=== PATIENT | female | born 1980 | race Caucasian/White ===

== ENCOUNTER → 2020-12-06 13:30 | Outpatient (BNVA) | payer OTHER, SELFPAY | PROVIDERS: PCP Nurse Practitioner Family; Visit Provider Internal Medicine | DX: G43.711 Chronic migraine without aura, intractable, with status migrainosus (principal); M54.81 Occipital neuralgia | CPT/HCPCS: 64405; J3300 ==

== ENCOUNTER → 2021-01-14 08:03 | Outpatient (BNVA) | payer OTHER, SELFPAY | PROVIDERS: PCP Nurse Practitioner Family; Visit Provider Internal Medicine | DX: G43.711 Chronic migraine without aura, intractable, with status migrainosus (principal) | CPT/HCPCS: 64615; J0585 ==

== ENCOUNTER → 2021-04-11 08:01 | Outpatient (BNVA) | payer OTHER, SELFPAY | PROVIDERS: PCP Nurse Practitioner Family; Visit Provider Internal Medicine | DX: M54.81 Occipital neuralgia (principal); G43.711 Chronic migraine without aura, intractable, with status migrainosus | CPT/HCPCS: 64615; J0585 ==

== ENCOUNTER → 2021-07-08 11:09 | Outpatient (BNVA) | payer OTHER, SELFPAY | PROVIDERS: PCP Nurse Practitioner Family; Visit Provider Internal Medicine | DX: G43.711 Chronic migraine without aura, intractable, with status migrainosus (principal) | CPT/HCPCS: 64615; J0585 ==

== ENCOUNTER → 2021-09-23 08:05 | Outpatient (BNVA) | payer OTHER, SELFPAY | PROVIDERS: PCP Nurse Practitioner Family; Visit Provider Internal Medicine | DX: G43.711 Chronic migraine without aura, intractable, with status migrainosus (principal) | CPT/HCPCS: 64615 ==

== ENCOUNTER → 2021-12-13 09:56 | Outpatient (BNVA) | payer OTHER, SELFPAY | PROVIDERS: PCP Nurse Practitioner Family; Visit Provider Internal Medicine | DX: Z13.89 Encounter for screening for other disorder (principal) | CPT/HCPCS: 73030; 99203 ==

== ENCOUNTER → 2021-12-16 10:09 | Outpatient (BNVA) | payer OTHER, SELFPAY | PROVIDERS: PCP Nurse Practitioner Family; Visit Provider Internal Medicine | DX: G43.711 Chronic migraine without aura, intractable, with status migrainosus (principal) | CPT/HCPCS: 64615 ==

== ENCOUNTER → 2021-12-16 13:21 | Outpatient (BNVA) | payer OTHER, SELFPAY | PROVIDERS: PCP Nurse Practitioner Family; Visit Provider Internal Medicine | DX: Z13.89 Encounter for screening for other disorder (principal) | CPT/HCPCS: 99213 ==

== ENCOUNTER 2021-12-21 06:09 | Outpatient (REF) | payer OTHER, SELFPAY | END 2021-12-21 06:10 | disposition home or self-care (01) | LOC: HO.HOSX 06:09 | PROVIDERS: Visit Provider Physician Assistant | DX: M75.21 Bicipital tendinitis, right shoulder (principal); X50.0XXA Overexertion from strenuous movement or load, initial encounter; Y93.F2 Activity, caregiving, lifting; Y92.9 Unspecified place or not applicable; Y99.0 Civilian activity done for income or pay | CPT/HCPCS: 20610; 99202; J1040 ==

== ENCOUNTER 2022-02-01 10:07 | Outpatient (REF) | payer OTHER, SELFPAY ==
[2022-02-02 21:01] LABS: Prolactin 7.1 ng/mL
== END 2022-02-01 10:08 | disposition home or self-care (01) ==
LOC: HO.LAB 10:07
PROVIDERS: PCP Nurse Practitioner Family; Visit Provider Advanced Practice Midwife
DX: M75.21 Bicipital tendinitis, right shoulder (principal); M25.311 Other instability, right shoulder; N92.6 Irregular menstruation, unspecified
CPT/HCPCS: 36415; 84146; 84443; 99212

== ENCOUNTER 2022-02-24 13:08 | Outpatient (REF) | payer OTHER, SELFPAY ==
--- NOTE | ~2022-02-24 | MR_ITS ---
EXAMINATION: MR SHOULDER WITH CONTRAST, RIGHT CLINICAL INFORMATION: Biceps tendinitis COMPARISON: Radiographs 12/13/2021 TECHNIQUE: MRI of the shoulder was performed following the intra-articular administration of a dilute gadolinium-containing solution (arthrogram) on a high-field scanner. FINDINGS: ROTATOR CUFF: Intact. No muscle atrophy or fatty infiltration. BICEPS: Normal. CORACOACROMIAL ARCH: The undersurface of the acromion is curved with no subacromial spur. The acromioclavicular joint is normal. LABRUM/CAPSULE: Normal. GLENOHUMERAL JOINT/MARROW: No articular cartilage defect. Bone marrow signal is normal. MR/MR shoulder RT w con IMPRESSION: Normal MRI arthrogram of the right shoulder. No rotator cuff tear. The glenoid labrum appears intact.
--- NOTE | ~2022-02-24 | FL_ITS ---
EXAMINATION: XR ARTHROGRAM SHOULDER, RIGHT CLINICAL INFORMATION: Bicipital tendinitis. Right shoulder pain. COMPARISON: None. TECHNIQUE: Following explaining fluoroscopy-guided right shoulder arthrogram procedure, benefits and risks, a written consent was obtained. Patient was placed supine on fluoroscopy table and the anterior aspect of the right shoulder joint was cleaned and draped in usual sterile manner. 1% lidocaine was injected at the puncture site overlying the anterior inferior shoulder joint. A 22-gauge spinal needle was then inserted from the anterior skin into the inferior shoulder joint and 2 mL of nonionic contrast was injected. A single image was obtained. After confirming contrast in the joint space 0.1 mL of gadolinium diluted with 8 mL of 1% lidocaine and saline combination was injected and needle withdrawn. Complete hemostasis was achieved at the puncture site. Simple Band-Aid applied postprocedure. Patient was sent to MRI for further imaging. FINDINGS: On a single image obtained of the shoulder joint, there is maintained glenohumeral and AC joint space. There is iodinated contrast opacifying the glenohumeral joint space. Post injection, patient was sent to MRI for further imaging. FLUOROSCOPY TIME: 0.5 minutes. DOSE AREA PRODUCT: 0.980 uGy-m2 (microgray-meter squared). FL/FL arthrogram shoulder RT IMPRESSION: Successful fluoroscopy-guided right shoulder arthrogram. Patient was sent to MRI for further imaging.
== END 2022-02-24 13:09 | disposition home or self-care (01) ==
LOC: HO.XRAY 13:08
PROVIDERS: PCP Nurse Practitioner Family; Visit Provider Physician Assistant
DX: M75.21 Bicipital tendinitis, right shoulder (principal); M25.311 Other instability, right shoulder
CPT/HCPCS: 23350; 73040; 73222; A9585

== ENCOUNTER → 2022-03-03 08:55 | Outpatient (BNVA) | payer OTHER, SELFPAY | PROVIDERS: PCP Nurse Practitioner Family; Visit Provider Internal Medicine | DX: Z13.89 Encounter for screening for other disorder (principal) | CPT/HCPCS: 99213 ==

== ENCOUNTER → 2022-03-20 08:02 | Outpatient (BNVA) | payer OTHER, SELFPAY | PROVIDERS: PCP Nurse Practitioner Family; Visit Provider Internal Medicine | DX: G43.711 Chronic migraine without aura, intractable, with status migrainosus (principal) | CPT/HCPCS: 64615 ==

== ENCOUNTER 2022-03-28 15:00 | Outpatient (RCR) | payer OTHER, SELFPAY ==
--- NOTE | 2021-12-30 08:59 | MHC.PT.EP ---
[facility] [place] Office [place] Office [place] Office [address] Tricia Ramos [address] [phone] F: [phone] F: [phone] F: [phone] F: [phone] Physical Therapy Plan of Care Date of Evaluation: Date of Surgery: N/A Diagnosis: PT RTC impingement (RC) Assessment: pt is a 41 yo female presenting to physical therapy w/ signs and symptoms consistent w/ shoulder strain. pt presents to physical therapy with pain, decreased range of motion, decreased strength, impaired functional mobility, impaired postural awareness, and gait deviations. pt is a good candidate for skilled PT due to age, potential remediation of impairments, typical disease/condition progression and prognosis, comorbidities, and motivation. pt would benefit from tailored strengthening and stretching exercise program, functional training, gait training, postural re-training, neuromuscular re-education, modalities as needed for pain, equipment safety demonstration. Frequency and Duration: The patient will be seen 2x/wk for 6 wks Short Term Goals: pt will be I w/ HEP to promote self-management of condition. pt will improve shoulder flexion by at least 10 degrees to promote ease in reaching for objects on higher shelves. Quantitative Analyst Marketing Goals: pt will improve R shoulder flexion and elbow flexion by at least 1 MMT grade to promote ease in carrying 15# object. pt will improve R shoulder functional internal rotation to at least T12 to promote ease in upper body dressing. Treatment Plan: Modalities to reduce pain, spasms and effusion. Manual therapy to restore motion and function. Therapeutic exercise to improve strength and flexibility. Neuromuscular re-education for posture and balance. Therapeutic activities to return to functional activities of daily living. Electronically signed by: Bety Young PT, DPT Please sign and return to therapist. Thank you for your referral.
--- NOTE | 2022-03-28 15:47 | MHC.PT.DC ---
[facility] [place] Office [place] Office [place] Office [address] Tricia Ramos [address] [phone] F: [phone] F: [phone] F: [phone] F: [phone] Physical Therapy Discharge Report Diagnosis: PT RTC impingement (RC) Date of Surgery: N/A Date of Evaluation: 12/30/21 Date of Discharge: Treatments to Date: 19 Cancellations to Date: 0 No Shows to Date: 0 Discharge Status: Discharge Summary: The patient overall has made significant improvements in her shoulder active range of motion, strength, endurance, and pain severity/intensity. She is nearly back to full activity without restriction. She does continue to self-limit regarding heavier lifting and overhead reaching due to fear of re-exacerbation of symptoms. She was instructed in a return to gym program to maintain the gains she has made here in PT. She is discharged from this physical therapy plan of care to her home exercise program. pt overall fatigued as she is on antibiotics for strep and just recently got her flu shot. Ended session early d/t fatigue. Electronically signed by: Please sign and return to therapist. Thank you for your referral.
== END 2022-03-28 15:47 | disposition home or self-care (01) ==
LOC: HO.PT 15:00
PROVIDERS: PCP Nurse Practitioner Family; Visit Provider Internal Medicine
DX: M25.811 Other specified joint disorders, right shoulder (principal)
CPT/HCPCS: 97035; 97110; 97140; 97162; 97530

== ENCOUNTER → 2022-04-06 13:59 | Outpatient (BNVA) | payer OTHER, SELFPAY | PROVIDERS: PCP Nurse Practitioner Family; Visit Provider Internal Medicine | DX: Z13.89 Encounter for screening for other disorder (principal) | CPT/HCPCS: 99213 ==

== ENCOUNTER → 2022-04-12 08:06 | Outpatient (BNVA) | payer OTHER, SELFPAY | PROVIDERS: PCP Nurse Practitioner Family; Visit Provider Physician Assistant | DX: M75.21 Bicipital tendinitis, right shoulder (principal) | CPT/HCPCS: 20610; 99212; J1040 ==

== ENCOUNTER 2022-05-01 15:23 | Outpatient (REF) | payer OTHER, SELFPAY ==
--- NOTE | ~2022-05-01 | MM_ITS ---
EXAMINATION: MM SCREENING DIGITAL BREAST TOMOSYNTHESIS, BILATERAL CLINICAL INFORMATION: Screening. Asymptomatic. Prior history reduction mammoplasty. Age 41. Family history breast cancer, mother age 68. COMPARISON: None (current study represents initial baseline exam). TECHNIQUE: Digital breast tomosynthesis is performed in both the craniocaudal and mediolateral oblique views along with computer-aided detection (CAD). Synthesized 2D images are generated from the tomosynthesis. FINDINGS: There are scattered areas of fibroglandular density (ACR BI-RADS breast composition Category b). There are no significant masses, abnormal calcifications, or other abnormalities. There are scattered bilateral benign round, rim, and dermal calcifications anterior breasts consistent with the prior reduction mammoplasty. The axilla are unremarkable. MM/MM tomosynthesis screening BI IMPRESSION: No mammographic evidence of malignancy. ASSESSMENT: BI-RADS 2: Benign RECOMMENDATION: Routine annual mammography screening. This patient's information was entered into a reminder system with a target due date for their next mammogram.
== END 2022-05-01 15:24 | disposition home or self-care (01) ==
LOC: HO.MAMMO 15:23
PROVIDERS: PCP Nurse Practitioner Family; Visit Provider Nurse Practitioner Family
DX: Z12.31 Encounter for screening mammogram for malignant neoplasm of breast (principal)
CPT/HCPCS: 77063; 77067

== ENCOUNTER → 2022-06-26 08:02 | Outpatient (BNVA) | payer OTHER, SELFPAY | PROVIDERS: PCP Nurse Practitioner Family; Visit Provider Internal Medicine | DX: G43.711 Chronic migraine without aura, intractable, with status migrainosus (principal) | CPT/HCPCS: 64615; J0585 ==

== ENCOUNTER → 2022-07-20 10:03 | Outpatient (BNVA) | payer OTHER, SELFPAY | PROVIDERS: PCP Nurse Practitioner Family; Visit Provider Physician Assistant Medical | DX: Z13.89 Encounter for screening for other disorder (principal) | CPT/HCPCS: 99202 ==

== ENCOUNTER → 2022-07-27 08:22 | Outpatient (BNVA) | payer OTHER, SELFPAY | PROVIDERS: PCP Nurse Practitioner Family; Visit Provider Physician Assistant Medical | DX: Z13.89 Encounter for screening for other disorder (principal) | CPT/HCPCS: 99213 ==

== ENCOUNTER → 2022-08-04 10:19 | Outpatient (BNVA) | payer OTHER, SELFPAY | PROVIDERS: PCP Nurse Practitioner Family; Visit Provider Physician Assistant | DX: M75.21 Bicipital tendinitis, right shoulder (principal); M75.41 Impingement syndrome of right shoulder | CPT/HCPCS: 20610; 99212; J1040 ==

== ENCOUNTER → 2022-08-21 08:04 | Outpatient (BNVA) | payer OTHER, SELFPAY | PROVIDERS: PCP Nurse Practitioner Family; Visit Provider Internal Medicine | DX: G43.711 Chronic migraine without aura, intractable, with status migrainosus (principal) | CPT/HCPCS: 64615; J0585 ==

== ENCOUNTER → 2022-09-01 08:25 | Outpatient (BNVA) | payer OTHER, SELFPAY | PROVIDERS: PCP Nurse Practitioner Family; Visit Provider Physician Assistant | DX: M75.21 Bicipital tendinitis, right shoulder (principal); M75.41 Impingement syndrome of right shoulder | CPT/HCPCS: 99212 ==

== ENCOUNTER → 2022-11-20 07:58 | Outpatient (BNVA) | payer OTHER, SELFPAY | PROVIDERS: PCP Nurse Practitioner Family; Visit Provider Internal Medicine | DX: G43.711 Chronic migraine without aura, intractable, with status migrainosus (principal); M75.41 Impingement syndrome of right shoulder | CPT/HCPCS: 64615; J0585 ==

== ENCOUNTER 2023-01-26 09:18 | Outpatient (AMB) | payer OTHER, SELFPAY ==
--- NOTE | 2023-01-26 09:24 | A.OFFVIS_ITS ---
Intake Vital Signs 01/26/23 09:25 Height 5 ft 7 in Weight 135 lb BMI 21.1 Intake Visit Reasons: New Pt - Right Shoulder Pain Intake Note: Rosanne is a 42 year old right hand dominant female who presents today with complaints of right shoulder pain. Patient reports that she has had ongoing right shoulder pain for about a year now, she had an injury in 2021 while at work . She has history of right shoulder injections with [facility], she reports that these injections were helpful. She reports that she was restraining a patient who was waking up from anesthesia and she believes she aggravated her shoulder while doing this. Allergies No Known Allergies Allergy (Verified 11/20/22 08:03) HPI New Pt - Right Shoulder Pain HPI Details Rosanne is a 42 year old right hand dominant woman who returns to discuss her right shoulder impingement. She works as a nurse here at [employer], and initially injured her shoulder retraining a patient, DOI: 12/09/21. She has been seen by TITA Gomez and given a steroid injection on 08/04/22, with good relief for at least 6 weeks. She returns today with complains of pain in her shoulder, worse with overhead activities and at night. Her pain is localized to the anterior of her shoulder She would like a repeat injection today. She found limited relief from PT in the past She had an MRI of her shoulder on 02/27/22 [facility] Medical History Bilateral occipital neuralgia Migraine Surgical History History of endometrial ablation Social History Current occupational status: employed Current occupation: OR nurse Review of Systems Const All systems reviewed & are unremarkable except as noted in HPI and below Physical Exam Vital Signs: BMI result Body Mass Index 21.1 Const General: no acute distress and alert Orientation/consciousness: patient oriented x3 Neuro General: patient oriented x3 Extrem Other: Right Shoulder: +H/N - empty can + O bladimir's TTP over bicipital ghroove neg lift off Psych Appearance: grossly normal Affect: normal affect Attitude: cooperative Office Procedures Joint Injection/Drain Joint Injection/Drain Details: Injected 1 mL of Decadron and 3 mL 1% lidocaine and 3 mL of 0.25% Marcaine. Site was prepped using aseptic technique. Patient tolerated the procedure well. Primary Site: right shoulder (GH joint) Approach Used: posterolateral Coding 31635 - Large joint Procedure code (CPT) selection complete Results Reviewed Results Reviewed: 01/26/23 09:47 BUPivacaine MPF 0.25 % [Sensorcaine-MPF 0.25% 10 ML] 10 ml .ROUTE .STK-MED ONE Lidocaine HCl 2 % MPF [Xylocaine 2 % MPF] 5 ml .ROUTE .STK-MED ONE 01/26/23 09:48 dexAMETHasone sod phosphate [Decadron] 4 mg .ROUTE .STK-MED ONE I personally reviewed relevant MR images. MR/MR shoulder RT w con IMPRESSION: Normal MRI arthrogram of the right shoulder. No rotator cuff tear. The glenoid labrum appears intact. Assessment & Plan Assessment & Plan (1) Biceps tendinitis of right shoulder: Code(s): M75.21 - Bicipital tendinitis, right shoulder Plan: This is a 42 year old woman with right biceps tendinitis & shoulder impingement, S/P work injury of 12/09/21. She continues to have pain with daily activity, worse with overhead activity an at night. She has good, but limited, relief from steroid injections and no improvement with PT. I discussed her diagnosis and treatment options, including surgery. I injected her right GH joint, which she tolerated well. We will see if this is helpful and proceed accordingly. (2) Rotator cuff impingement syndrome of right shoulder: Code(s): M75.41 - Impingement syndrome of right shoulder Plan Scribed for Camacho Decker MD by Jesus Manuel Scott, medical supply technician, on 01/26/23 at 9:45 AM, EST. Coding Level of Care Code Est Pt Level 4 (69795) Diagnoses Biceps tendinitis of right shoulder M75.21 Rotator cuff impingement syndrome of right shoulder M75.41 CPT Codes Coding - Large joint: 14914 - Large joint ([id number])
[2023-01-26 09:25] VITALS: BMI 21.1
== END 2023-01-26 10:04 | disposition home or self-care (01) ==
PROVIDERS: PCP Nurse Practitioner Family; Visit Provider Orthopaedic Surgery
DX: M75.21 Bicipital tendinitis, right shoulder (principal); M75.41 Impingement syndrome of right shoulder
CPT/HCPCS: 20610; 99214

== ENCOUNTER → 2023-01-26 09:18 | Outpatient (BNVA) | payer OTHER, SELFPAY | PROVIDERS: PCP Nurse Practitioner Family; Visit Provider Orthopaedic Surgery | DX: M75.21 Bicipital tendinitis, right shoulder (principal); M75.41 Impingement syndrome of right shoulder | CPT/HCPCS: 20610; 99212; J1100 ==

== ENCOUNTER 2023-02-23 08:19 | Outpatient (AMB) | payer OTHER, SELFPAY ==
--- NOTE | 2023-02-23 08:32 | MHC.OFFVIS ---
Intake Vital Signs 02/23/23 08:56 BP 104/72 Blood Pressure Location Rt brachial Position Sitting Respiration 14 Pulse 61 Pulse Source Pulse Oximeter Pulse Oximetry (%) 100 Oxygen Delivery Method Room Air Intake Visit Reasons: Botox Injection Allergies No Known Allergies Allergy (Verified 11/20/22 08:03) HPI Botox Injection HPI Details 42-year-old female who presents today to the office for a Botox injection. Denies any recent cough, cold, infection, fever or other significant changes in medical history since last office visit. [facility] Medical History Bilateral occipital neuralgia Migraine Surgical History History of endometrial ablation Social History Current occupational status: employed Current occupation: OR nurse Review of Systems Const All systems reviewed & are unremarkable except as noted in HPI and below Physical Exam Vital Signs: Last Vital Signs Pulse 61 02/23/23 08:56 Resp 14 02/23/23 08:56 BP 104/72 02/23/23 08:56 Pulse Ox 100 02/23/23 08:56 Oxygen Delivery Method Room Air 02/23/23 08:56 General: Appears afebrile. Alert and oriented. Mood and affect appropriate. Follows and participates in conversation appropriately. Respiratory effort is unlabored. Able to transition from sit to stand unassisted. Ambulates with bilaterally normal heel strike and toe off. Office Procedures Botulinum toxin Injection Details: Chemodenervation of Scalp and Neck for Chronic Migraine (155 units as per protocol approved by FDA) After obtaining written consent, pre-procedure blood pressure and heart rate were stable and recorded in the nursing record. The patient was placed in the sitting position. Bilaterally, 31 points along supervisor crack off (2 sites), procerus (1 site), frontalis (4 sites), temporalis (8 sites), occipitalis (6 sites), cervical paraspinals (4 sites), and trapezius (6 sites) were identified and prepped with alcohol. Using sterile technique, a 30 gauge 0.5 inch needle (for all sites other than trapezius) and 25 gauge 1.5 inch (for trapezius only) needle was introduced into each muscle and 5 units per site was injected. A total of 155 units were used. Aspirations were negative for blood, CSF and air prior to injection at all sites. The needle was removed, skin cleansed and a sterile bandage was applied where needed. The patient tolerated the procedure well and no complications were encountered. Following the procedure the patient's vital signs were stable. The patient was discharged home in good condition with post-procedural instructions. Time Out: Immediately prior to the procedure, the following was verbally confirmed that there is a signed consent form and that the correct patient, planned procedure, site and side are consistent with documentation and that necessary equipment and/or blood products are available prior to the start of the case. Complications: none EBL: <5 cc 53506 - Migraine Procedure code (CPT) selection complete Office Meds onabotulinumtoxinA 100 unit solution for injection Performing Provider: Akbar Osorio MD Performing Location: [facility] Administered by: Akbar Osorio MD on 03/02/23 08:04 Dose Route Admin Location Dispensed Lot Number Expiration Date [employer] 155 unit IM 155 ea Results Reviewed Results Reviewed: No imaging is available for review. Assessment & Plan Assessment & Plan (1) Migraine: Code(s): G43.909 - Migraine, unspecified, not intractable, without status migrainosus Qualifiers: Intractability: intractable Migraine type: chronic without aura Status migrainosus presence: with status migrainosus Qualified Code(s): G43.711 - Chronic migraine without aura, intractable, with status migrainosus Plan Patient is status post Botox injections. Patient tolerated procedure well and was discharged home in stable condition with discharge instructions. All questions were answered. We will follow-up in two weeks via telephone or in clinic to assess response to therapy. A follow-up appointment was made during today's visit. Scribed for Dr. Osorio by Jeremías Agarwal, medical billing representative, on 02/23/2023. I, Dr. Osorio, have personally reviewed and agree with the information entered by the scribe. Orders: Orders AMB Botulinum toxin Injection 02/23/23 G43.909 - Migraine, unspecified, not intractable, without status migrainosus Coding Level of Care Code Procedure Only Diagnoses Intractable chronic migraine without aura and with status migrainosus G43.711 Intractability: intractable Migraine type: chronic without aura Status migrainosus presence: with status migrainosus CPT Codes Botox Injection - Botox 3: 60976 - Migraine ([id number])
[2023-02-23 08:56] VITALS: BP 104/72; PULSE 61; RESP 14; O2SAT 100
== END 2023-02-23 08:55 | disposition home or self-care (01) ==
PROVIDERS: PCP Nurse Practitioner Family; Visit Provider Internal Medicine
DX: G43.711 Chronic migraine without aura, intractable, with status migrainosus (principal)
CPT/HCPCS: 64615

== ENCOUNTER → 2023-02-23 08:19 | Outpatient (BNVA) | payer OTHER, SELFPAY | PROVIDERS: PCP Nurse Practitioner Family; Visit Provider Internal Medicine | DX: G43.711 Chronic migraine without aura, intractable, with status migrainosus (principal) | CPT/HCPCS: 64615; J0585 ==

== ENCOUNTER 2023-05-18 08:29 | Outpatient (AMB) | payer OTHER, SELFPAY ==
[2023-05-18 08:36] VITALS: BP 127/83; PULSE 88; RESP 12
--- NOTE | 2023-05-18 08:36 | A.OFFVIS_ITS ---
Intake Vital Signs 05/18/23 08:36 BP 127/83 Blood Pressure Location Lt brachial Position Sitting Respiration 12 Pulse 88 Pulse Source Pulse Oximeter Intake Visit Reasons: BOTOX INJECTIONS/lvm Allergies No Known Allergies Allergy (Verified 05/18/23 08:37) HPI BOTOX INJECTIONS/lvm HPI Details 42-year-old female who presents today to the office for a Botox injection. Denies any recent cough, cold, infection, fever or other significant changes in medical history since last office visit. COUNT INCLUDES THE [facility] Medical History Bilateral occipital neuralgia Migraine Surgical History History of endometrial ablation Social History Current occupational status: employed Current occupation: OR nurse Review of Systems Const All systems reviewed & are unremarkable except as noted in HPI and below Physical Exam Vital Signs: Last Vital Signs Pulse 88 05/18/23 08:36 Resp 12 05/18/23 08:36 BP 127/83 05/18/23 08:36 General: Appears afebrile. Alert and oriented. Mood and affect appropriate. Follows and participates in conversation appropriately. Respiratory effort is unlabored. Able to transition from sit to stand unassisted. Ambulates with bilaterally normal heel strike and toe off. Office Procedures Botulinum toxin Injection Details: Chemodenervation of Scalp and Neck for Chronic Migraine (155 units as per protocol approved by FDA) After obtaining written consent, pre-procedure blood pressure and heart rate were stable and recorded in the nursing record. The patient was placed in the sitting position. Bilaterally, 31 points along toll booth operator (2 sites), procerus (1 site), frontalis (4 sites), temporalis (8 sites), occipitalis (6 sites), cervical paraspinals (4 sites), and trapezius (6 sites) were identified and prepped with alcohol. Using sterile technique, a 30 gauge 0.5 inch needle (for all sites other than trapezius) and 25 gauge 1.5 inch (for trapezius only) needle was introduced into each muscle and 5 units per site was injected. A total of 155 units were used. Aspirations were negative for blood, CSF and air prior to injection at all sites. The needle was removed, skin cleansed and a sterile bandage was applied where needed. The patient tolerated the procedure well and no complications were encountered. Following the procedure the patien t's vital signs were stable. The patient was discharged home in good condition with post-procedural instructions. Time Out: Immediately prior to the procedure, the following was verbally confirmed that there is a signed consent form and that the correct patient, planned procedure, site and side are consistent with documentation and that necessary equipment and/or blood products are available prior to the start of the case. Complications: none EBL: <5 cc 39250 - Migraine Procedure code (CPT) selection complete Office Meds onabotulinumtoxinA 200 unit solution for injection Performing Provider: Akbar Osorio MD Performing Location: [facility] Administered by: Akbar Osorio MD on 05/18/23 08:23 Dose Route Admin Location Dispensed Lot Number Expiration Date [facility] Cube Machine Tender 155 unit IM 200 ea [id number] 09/16/25 Results Reviewed Results Reviewed: No imaging is available for review. Assessment & Plan Assessment & Plan (1) Migraine: Code(s): G43.909 - Migraine, unspecified, not intractable, without status migrainosus Qualifiers: Migraine type: chronic without aura Status migrainosus presence: with status migrainosus Intractability: intractable Qualified Code(s): G43.711 - Chronic migraine without aura, intractable, with status migrainosus Plan Patient is status post Botox injections for migraines. Patient tolerated procedure well and was discharged home in stable condition with discharge instructions. All questions were answered. Repeat in [address] Osorio by Jeremías Agarwal, medical equipment technician, on 05/18/2023. I, Dr. Osorio, have personally reviewed and agree with the information entered by the scribe. Orders: Orders AMB Botulinum toxin Injection 05/18/23 G43.909 - Migraine, unspecified, not intractable, without status migrainosus Coding Level of Care Code Procedure Only Diagnoses Intractable chronic migraine without aura and with status migrainosus G43.711 Migraine type: chronic without aura Status migrainosus presence: with status migrainosus Intractability: intractable CPT Codes Botox Injection - Botox 3: 53311 - Migraine ([id number])
== END 2023-05-18 08:59 | disposition home or self-care (01) ==
PROVIDERS: PCP Nurse Practitioner Family; Visit Provider Internal Medicine
DX: G43.711 Chronic migraine without aura, intractable, with status migrainosus (principal)
CPT/HCPCS: 64615

== ENCOUNTER → 2023-05-18 08:29 | Outpatient (BNVA) | payer OTHER, SELFPAY | PROVIDERS: PCP Nurse Practitioner Family; Visit Provider Internal Medicine | DX: G43.711 Chronic migraine without aura, intractable, with status migrainosus (principal); M54.81 Occipital neuralgia; Z79.899 Other long term (current) drug therapy | CPT/HCPCS: 64615; J0585 ==

== ENCOUNTER 2023-08-10 08:04 | Outpatient (AMB) | payer OTHER, SELFPAY ==
[2023-08-10 08:31] VITALS: BP 117/70; PULSE 67; RESP 12; O2SAT 100; BMI 21.1
--- NOTE | 2023-08-10 08:31 | MHC.OFFVIS ---
Intake Vital Signs 08/10/23 08:31 Height 5 ft 7 in Weight 135 lb BMI 21.1 BP 117/70 Blood Pressure Location Lt brachial Position Sitting Respiration 12 Pulse 67 Pulse Source Pulse Oximeter Pulse Oximetry (%) 100 Oxygen Delivery Method Room Air Intake Visit Reasons: BOTOX INJECTIONS/LVM Allergies No Known Allergies Allergy (Verified 08/10/23 08:32) Medication List - Last Reconciled 08/10/23 by Vilma Vegas LPN [[facility] cold [facility], part number [id number]. PC [place] with intelli-merary shoulder pad NS] onabotulinumtoxinA (Botox) 155 units subcut .Q 3 months ondansetron 4 mg PO Q4-6H PRN sumatriptan succinate (Imitrex) 100 mg PO Q2-4H PRN HPI BOTOX INJECTIONS/LVM HPI Details 42-year-old female who presents today to the office for a botox injections. Denies any recent cough, cold, infection, fever or other significant changes in medical history since last office visit. FORMERLY [facility] Medical History Bilateral occipital neuralgia Migraine Surgical History History of endometrial ablation Social History Current occupational status: employed Current occupation: OR nurse Review of Systems Const All systems reviewed & are unremarkable except as noted in HPI and below Physical Exam Vital Signs: Last Vital Signs Pulse 67 08/10/23 08:31 Resp 12 08/10/23 08:31 BP 117/70 08/10/23 08:31 Pulse Ox 100 08/10/23 08:31 Oxygen Delivery Method Room Air 08/10/23 08:31 BMI result Body Mass Index 21.1 General: Appears afebrile. Alert and oriented. Mood and affect appropriate. Follows and participates in conversation appropriately. Respiratory effort is unlabored. Able to transition from sit to stand unassisted. Ambulates with bilaterally normal heel strike and toe off. Office Procedures Botulinum toxin Injection Details: Chemodenervation of Scalp and Neck for Chronic Migraine (155 units as per protocol approved by FDA) After obtaining written consent, pre-procedure blood pressure and heart rate were stable and recorded in the nursing record. The patient was placed in the sitting position. Bilaterally, 31 points along aboriginal community council member (2 sites), procerus (1 site), frontalis (4 sites), temporalis (8 sites), occipitalis (6 sites), cervical paraspinals (4 sites), and trapezius (6 sites) were identified and prepped with alcohol. Using sterile technique, a 30 gauge 0.5 inch needle (for all sites other than trapezius) and 25 gauge 1.5 inch (for trapezius only) needle was introduced into each muscle and 5 units per site was injected. A total of 155 units were used. Aspirations were negative for blood, CSF and air prior to injection at all sites. The needle was removed, skin cleansed and a sterile bandage was applied where needed. The patient tolerated the procedure well and no complications were encountered. Following the procedure the patient's vital signs were stable. The patient was discharged home in good condition with post-procedural instructions. Time Out: Immediately prior to the procedure, the following was verbally confirmed that there is a signed consent form and that the correct patient, planned procedure, site and side are consistent with documentation and that necessary equipment and/or blood products are available prior to the start of the case. Complications: none EBL: <5 cc 14343 - Migraine Procedure code (CPT) selection complete Office Meds onabotulinumtoxinA 200 unit solution for injection Performing Provider: Akbar Osorio MD Performing Location: [facility] Administered by: Akbar Osorio MD on 08/16/23 15:13 Dose Route Admin Location Dispensed Lot Number Expiration Date [facility] Supply Crib Attendant 200 unit IM 1 ea Results Reviewed Results Reviewed: No imaging is available for review. LOT no: [id number] Expiry: December 11. Assessment & Plan Assessment & Plan (1) Migraine: Code(s): G43.909 - Migraine, unspecified, not intractable, without status migrainosus Qualifiers: Migraine type: chronic without aura Status migrainosus presence: with status migrainosus Intractability: intractable Qualified Code(s): G43.711 - Chronic migraine without aura, intractable, with status migrainosus Plan Patient is status post Botox injections for migraines. Patient tolerated procedure well and was discharged home in stable condition with discharge instructions. All questions were answered. Repeat in [address] Osorio by Jeremías Agarwal, medical record transcriber, on 08/10/2023. I, Dr. Osorio, have personally reviewed and agree with the information entered by the scribe. Orders: Orders AMB Botulinum toxin Injection 08/10/23 G43.909 - Migraine, unspecified, not intractable, without status migrainosus Coding Level of Care Code Procedure Only Diagnoses Intractable chronic migraine without aura and with status migrainosus G43.711 Migraine type: chronic without aura Status migrainosus presence: with status migrainosus Intractability: intractable CPT Codes Botox Injection - Botox 3: 34664 - Migraine ([id number])
== END 2023-08-10 09:03 | disposition home or self-care (01) ==
PROVIDERS: PCP Nurse Practitioner Family; Visit Provider Internal Medicine
DX: G43.711 Chronic migraine without aura, intractable, with status migrainosus (principal); G43.909 Migraine, unspecified, not intractable, without status migrainosus
CPT/HCPCS: 64615

== ENCOUNTER → 2023-08-10 08:04 | Outpatient (BNVA) | payer OTHER, SELFPAY | PROVIDERS: PCP Nurse Practitioner Family; Visit Provider Internal Medicine | DX: G43.711 Chronic migraine without aura, intractable, with status migrainosus (principal) | CPT/HCPCS: 64615; J0585 ==

== ENCOUNTER 2023-10-04 13:00 | Outpatient (RCR) | payer OTHER, SELFPAY | END 2023-10-05 08:00 | disposition home or self-care (01) | LOC: HO.PT 13:00 | PROVIDERS: PCP Nurse Practitioner Family; Visit Provider Orthopaedic Surgery | DX: M75.41 Impingement syndrome of right shoulder (principal) | CPT/HCPCS: 97110; 97140; 97161; 97530 ==

== ENCOUNTER 2023-11-05 08:21 | Outpatient (AMB) | payer OTHER, SELFPAY ==
--- NOTE | 2023-11-05 08:23 | MHC.OFFVIS ---
Vital Signs 11/05/23 08:24 Height 5 ft 7 in Weight 140 lb BMI 21.9 BP 114/74 Blood Pressure Location Lt brachial Position Sitting Respiration 14 Pulse 60 Pulse Source Pulse Oximeter Pulse Oximetry (%) 99 Oxygen Delivery Method Room Air Intake Visit Reasons: BOTOX INJECTIONS Allergies No Known Allergies Allergy (Verified 11/05/23 08:25) Medication List - Last Reconciled 11/05/23 by Vilma Vegas LPN [[facility] [employer] cold therapy system [facility], part number [id number]. Glass[employer] with intelli-merary shoulder pad NS] onabotulinumtoxinA (Botox) 155 units subcut .Q 3 months ondansetron 4 mg PO Q4-6H PRN sumatriptan succinate (Imitrex) 100 mg PO Q2-4H PRN HPI HPI BOTOX INJECTIONS: Details: 42-year-old female who presents today to the office for a botox injection. Denies any recent cough, cold, infection, fever or other significant changes in medical history since last office visit. FORMERLY [facility] Medical History Bilateral occipital neuralgia Migraine Surgical History History of endometrial ablation Social History Current occupational status: employed Current occupation: OR nurse Review of Systems Const All systems reviewed & are unremarkable except as noted in HPI and below Physical Exam Vital Signs: Last Vital Signs Pulse 60 11/05/23 08:24 Resp 14 11/05/23 08:24 BP 114/74 11/05/23 08:24 Pulse Ox 99 11/05/23 08:24 Oxygen Delivery Method Room Air 11/05/23 08:24 BMI result Body Mass Index 21.9 General: Appears afebrile. Alert and oriented. Mood and affect appropriate. Follows and participates in conversation appropriately. Respiratory effort is unlabored. Able to transition from sit to stand unassisted. Ambulates with bilaterally normal heel strike and toe off. Office Procedures Botulinum toxin Injection Details: Chemodenervation of Scalp and Neck for Chronic Migraine (155units as per protocol approved by FDA) After obtaining written consent, pre-procedure blood pressure and heart rate were stable and recorded in the nursing record. The patient was placed in the sitting position. Bilaterally, 31 points along director medical science (2 sites), procerus (1 site), frontalis (4 sites), temporalis (8 sites), occipitalis (6 sites), cervical paraspinals (4 sites), and trapezius (6 sites) were identified and prepped with alcohol. Using sterile technique, a 30 gauge 0.5 inch needle (for all sites other than trapezius) and 25 gauge 1.5 inch (for trapezius only) needle was introduced into each muscle and 5 units per site was injected. A total of 155 units were used. Aspirations were negative for blood, CSF and air prior to injection at all sites. The needle was removed, skin cleansed and a sterile bandage was applied where needed. The patient tolerated the procedure well and no complications were encountered. Following the procedure the patient's vital signs were stable. The patient was discharged home in good condition with post-procedural instructions. Time Out: Immediately prior to the procedure, the following was verbally confirmed that there is a signed consent form and that the correct patient, planned procedure, site and side are consistent with documentation and that necessary equipment and/or blood products are available prior to the start of the case. Complications: none EBL: <5 cc 31298 - Migraine Procedure code (CPT) selection complete Office Meds incobotulinumtoxinA 200 unit intramuscular solution Performing Provider: Akbar Osorio MD Performing Location: [facility] Administered by: Akbar Osorio MD on 11/05/23 08:58 Dose Route Admin Location Dispensed Lot Number Expiration Date [facility] Community Pharmacist 200 unit IM 155 ea [id number] 11/16/25 Results Reviewed Results Reviewed: No imaging is available for review. Lot no: ?[id number] Exp no: November 2025 Assessment & Plan Assessment & Plan (1) Migraine: Code(s): G43.909 - Migraine, unspecified, not intractable, without status migrainosus Category: Medical Qualifiers: Intractability: intractable Migraine type: chronic without aura Status migrainosus presence: with status migrainosus Qualified Code(s): G43.711 - Chronic migraine without aura, intractable, with status migrainosus Plan Patient is status post Botox injections for migraines. Patient tolerated procedure well and was discharged home in stable condition with discharge instructions. All questions were answered. Repeat in [address] Osorio by Jeremías Agarwal, medical doctor nuclear medicine, on 11/05/2023. I, Dr. Osorio, have personally reviewed and agree with the information entered by the scribe. Orders: Orders AMB Botulinum toxin Injection 11/05/23 G43.711 - Chronic migraine without aura, intractable, with status migrainosus Coding Level of Care Code Procedure Only Diagnoses Intractable chronic migraine without aura and with status migrainosus G43.711 Intractability: intractable Migraine type: chronic without aura Status migrainosus presence: with status migrainosus CPT Codes Botox Injection - Botox 3: 99416 - Migraine ([id number])
[2023-11-05 08:24] VITALS: BP 114/74; PULSE 60; RESP 14; O2SAT 99; BMI 21.9
== END 2023-11-05 09:02 | disposition home or self-care (01) ==
PROVIDERS: PCP Nurse Practitioner Family; Visit Provider Internal Medicine
DX: G43.711 Chronic migraine without aura, intractable, with status migrainosus (principal)
CPT/HCPCS: 64615

== ENCOUNTER → 2023-11-05 08:21 | Outpatient (BNVA) | payer OTHER, SELFPAY | PROVIDERS: PCP Nurse Practitioner Family; Visit Provider Internal Medicine | DX: G43.711 Chronic migraine without aura, intractable, with status migrainosus (principal) | CPT/HCPCS: 64615; J0585; J0588 ==

== ENCOUNTER 2024-01-14 08:00 | Outpatient (AMB) | payer OTHER, SELFPAY ==
--- NOTE | 2024-01-14 08:04 | MHC.OFFVIS ---
Vital Signs 01/14/24 08:06 Height 5 ft 7 in BP 104/64 Blood Pressure Location Lt brachial Position Sitting Respiration 14 Pulse 55 Pulse Source Pulse Oximeter Pulse Oximetry (%) 100 Oxygen Delivery Method Room Air Intake Visit Reasons: PERICRANIAL INJECTION Allergies No Known Allergies Allergy (Verified 01/14/24 08:06) Medication List - Last Reconciled 01/14/24 by Vilma Vegas LPN [[facility] [employer] cold therapy system, part number [id number]. PC [place] with intelli-merary shoulder pad NS] onabotulinumtoxinA (Botox) 155 units subcut .Q 3 months ondansetron 4 mg PO Q4-6H PRN sumatriptan succinate (Imitrex) 100 mg PO Q2-4H PRN HPI HPI PERICRANIAL INJECTION: Details: 43-year-old female who presents today to the office for a pericranial injection. Denies any recent cough, cold, infection, fever or other significant changes in medical history since last office visit.? PFSH Medical History Bilateral occipital neuralgia Migraine Surgical History History of endometrial ablation Social History Current occupational status: employed Current occupation: OR nurse Review of Systems Const All systems reviewed & are unremarkable except as noted in HPI and below Physical Exam Vital Signs: Last Vital Signs Pulse 55 01/14/24 08:06 Resp 14 01/14/24 08:06 BP 104/64 01/14/24 08:06 Pulse Ox 100 01/14/24 08:06 Oxygen Delivery Method Room Air 01/14/24 08:06 General: Appears afebrile. Alert and oriented. Mood and affect appropriate. Follows and participates in conversation appropriately. Respiratory effort is unlabored. Able to transition from sit to stand unassisted. Ambulates with bilaterally normal heel strike and toe off. Office Procedures Nerve Block Details: Jamila-cranial nerve blocks. After obtaining written consent, pre-procedure blood pressure and heart rate were stable and recorded in the nursing record. The patient was in the sitting position. The skin overlying the target pericranial nerves was prepped with alcohol. A 27 gauge 1.5 in needle was used. The needle was placed on the target nerves including supraorbital nerve, supratrochlear nerve, auriculotemporal nerve, lesser occipital nerve and greater occipital nerve bilaterally. Aspiration was negative for heme and synovial fluid. 0.5-1 cc of ropivacaine 0.5% was injected at each site. The skin was cleansed and hemostasis was ensured. The patient tolerated the procedure well and no complications were encountered. Following the procedure the patient's vital signs were stable. The patient was discharged home in good condition with post-procedural instructions. Time Out: Immediately prior to the procedure, the following was verbally confirmed that there is a signed consent form and that the correct patient, planned procedure, site and side are consistent with documentation and that necessary equipment and/or blood products are available prior to the start of the case. Complications: none EBL: <1 cc Procedure code (CPT) selection complete Results Reviewed Results Reviewed: No imaging is available for review. Assessment & Plan Assessment & Plan (1) Bilateral occipital neuralgia: Code(s): M54.81 - Occipital neuralgia Category: Medical (2) Headache: Code(s): R51.9 - Headache, unspecified Category: Medical Plan Patient is status post jamila-cranial nerve blocks. Patient tolerated procedure well and was discharged home in stable condition with discharge instructions.? All questions were answered. Follow-up per scheduled for Botox injections. Scribed for Dr. Osorio by Jeremías Agarwal, medical record librarians teacher, on 01/14/2024. I, Dr. Osorio, have personally reviewed and agree with the information entered by the scribe. Coding Level of Care Code Procedure Only Diagnoses Bilateral occipital neuralgia M54.81 Headache R51.9
[2024-01-14 08:06] VITALS: BP 104/64; PULSE 55; RESP 14; O2SAT 100
== END 2024-01-14 08:41 | disposition home or self-care (01) ==
LOC: HO.PMC 08:00
PROVIDERS: PCP Nurse Practitioner Family; Visit Provider Internal Medicine
DX: M54.81 Occipital neuralgia (principal); R51.9 Headache, unspecified
CPT/HCPCS: 64405; 64450

== ENCOUNTER → 2024-01-14 08:00 | Outpatient (BNVA) | payer OTHER, SELFPAY | PROVIDERS: PCP Nurse Practitioner Family; Visit Provider Internal Medicine | DX: M54.81 Occipital neuralgia (principal); R51.9 Headache, unspecified | CPT/HCPCS: 64405; 64450; J2795 ==

== ENCOUNTER 2024-02-04 07:57 | Outpatient (AMB) | payer OTHER, SELFPAY ==
--- NOTE | 2024-02-04 07:57 | MHC.OFFVIS ---
Vital Signs 02/04/24 07:59 BP 102/62 Blood Pressure Location Lt brachial Position Sitting Respiration 14 Pulse 69 Pulse Source Pulse Oximeter Pulse Oximetry (%) 99 Oxygen Delivery Method Room Air Intake Visit Reasons: BOTOX INJECTION Allergies No Known Allergies Allergy (Verified 02/04/24 08:00) Medication List - Last Reconciled 02/04/24 by Vilma Vegas LPN [[employer] cold therapy system [employer] cold therapy system, part number [id number]. PC [place] with intelli-merary shoulder pad NS] onabotulinumtoxinA (Botox) 155 units subcut .Q 3 months ondansetron 4 mg PO Q4-6H PRN sumatriptan succinate (Imitrex) 100 mg PO Q2-4H PRN HPI HPI BOTOX INJECTION: Details: 43-year-old female who presents today to the office for a Botox injection. Denies any recent cough, cold, infection, fever or other significant changes in medical history since last office visit. She reports good relief from the pericranial nerve blocks over the past couple of weeks.? Past procedures 01/14/24: Jamila-cranial nerve blocks: 75% relief. [facility] Medical History Bilateral occipital neuralgia Migraine Surgical History History of endometrial ablation Social History Current occupational status: employed Current occupation: OR nurse Review of Systems Const All systems reviewed & are unremarkable except as noted in HPI and below Physical Exam Vital Signs: Last Vital Signs Pulse 69 02/04/24 07:59 Resp 14 02/04/24 07:59 BP 102/62 02/04/24 07:59 Pulse Ox 99 02/04/24 07:59 Oxygen Delivery Method Room Air 02/04/24 07:59 General: Appears afebrile. Alert and oriented. Mood and affect appropriate. Follows and participates in conversation appropriately. Respiratory effort is unlabored. Able to transition from sit to stand unassisted. Ambulates with bilaterally normal heel strike and toe off. Office Procedures Botulinum toxin Injection Details: Chemodenervation of Scalp and Neck for Chronic Migraine (155 units as per protocol approved by FDA) After obtaining written consent, pre-procedure blood pressure and heart rate were stable and recorded in the nursing record. The patient was placed in the sitting position. Bilaterally, 31 points along cataloging assistant (2 sites), procerus (1 site), frontalis (4 sites), temporalis (8 sites), occipitalis (6 sites), cervical paraspinals (4 sites), and trapezius (6 sites) were identified and prepped with alcohol. Using sterile technique, a 30 gauge 0.5 inch needle (for all sites other than trapezius) and 25 gauge 1.5 inch (for trapezius only) needle was introduced into each muscle and 5 units per site was injected. A total of 155 units were used. Aspirations were negative for blood, CSF and air prior to injection at all sites. The needle was removed, skin cleansed and a sterile bandage was applied where needed. The patient tolerated the procedure well and no complications were encountered. Following the procedure the patient's vital signs were stable. The patient was discharged home in good condition with post-procedural instructions. Time Out: Immediately prior to the procedure, the following was verbally confirmed that there is a signed consent form and that the correct patient, planned procedure, site and side are consistent with documentation and that necessary equipment and/or blood products are available prior to the start of the case. Complications: none EBL: <5 cc 25738 - Migraine Procedure code (CPT) selection complete Office Meds incobotulinumtoxinA 200 unit intramuscular solution Performing Provider: Akbar Osorio MD Performing Location[place] [facility] Administered by: Akbar Osorio MD on 02/04/24 09:03 Dose Route Admin Location Dispensed Lot Number Expiration Date [facility] Patient Transition Specialist 200 unit IM 155 ea [id number] 04/18/26 Results Reviewed Results Reviewed: No imaging is available for review. Assessment & Plan Assessment & Plan (1) Headache: Code(s): R51.9 - Headache, unspecified Category: Medical (2) Migraine: Code(s): G43.909 - Migraine, unspecified, not intractable, without status migrainosus Category: Medical Qualifiers: Intractability: intractable Migraine type: chronic without aura Status migrainosus presence: with status migrainosus Qualified Code(s): G43.711 - Chronic migraine without aura, intractable, with status migrainosus (3) Bilateral occipital neuralgia: Code(s): M54.81 - Occipital neuralgia Category: Medical Plan Patient is status post Botox injections for migraines. Patient tolerated procedure well and was discharged home in stable condition with discharge instructions. All questions were answered. Repeat in [address] Osorio by Jeremías Agarwal, bilingual medical receptionist, on 02/04/2024. I, Dr. Osorio, have personally reviewed and agree with the information entered by the scribe. Orders: Orders AMB Botulinum toxin Injection 02/04/24 G43.909 - Migraine, unspecified, not intractable, without status migrainosus Coding Level of Care Code Procedure Only Diagnoses Headache R51.9 Intractable chronic migraine without aura and with status migrainosus G43.711 Intractability: intractable Migraine type: chronic without aura Status migrainosus presence: with status migrainosus Bilateral occipital neuralgia M54.81 CPT Codes Botox Injection - Botox 3: 68365 - Migraine ([id number])
[2024-02-04 07:59] VITALS: BP 102/62; PULSE 69; RESP 14; O2SAT 99
== END 2024-02-04 08:32 | disposition home or self-care (01) ==
LOC: HO.PMC 07:57
PROVIDERS: PCP Nurse Practitioner Family; Visit Provider Internal Medicine
DX: G43.709 Chronic migraine without aura, not intractable, without status migrainosus (principal)
CPT/HCPCS: 64615

== ENCOUNTER → 2024-02-04 07:57 | Outpatient (BNVA) | payer OTHER, SELFPAY | PROVIDERS: PCP Nurse Practitioner Family; Visit Provider Internal Medicine | DX: G43.711 Chronic migraine without aura, intractable, with status migrainosus (principal); M54.81 Occipital neuralgia | CPT/HCPCS: 64615; J0588 ==

== ENCOUNTER 2024-02-20 06:27 | Outpatient (REF) | payer OTHER, SELFPAY ==
[2024-02-20 06:57] LABS: MANUAL DIFF FLAG NO
[2024-02-20 07:10] LABS: Basophils Absolute Auto 0.1 X10*3/uL (0.0-0.2); Eosinophils Absolute Auto 0.1 X10*3/uL (0.0-0.4); Eosinophils Percent Auto 3.3 % (0-4); Hematocrit 38.5 % (37.0-47.0); Hemoglobin 13.2 g/dl (12.0-16.0); Imm Gran Abs Auto 0.01 X10*3/uL (0.00-0.03); Imm Gran Pct Auto 0.3 % (0.0-0.4); Lymphocytes Absolute Auto 1.2 X10*3/uL (1.2-4.9); Lymphocytes Percent Auto 30.3 % (20-40); Mean Corpuscular HGB Conc 34.3 g/dl (31.0-35.0); Mean Corpuscular Hemoglobin 31.4 pg (27.0-33.0); Mean Corpuscular Volume 91.7 fL (80.0-98.0); Mean Platelet Volume 9.7 fL (9.4-12.3); Monocytes Absolute Auto 0.4 X10*3/uL (0.1-1.2); Monocytes Percent Auto 9.7 % (2-11); Neutrophils Absolute Auto 2.1 x10*3/uL (2.0-8.3); Neutrophils Percent Auto 54.4 % (45-73); Platelet Count 240 X10*3/uL (160-400); Red Cell Distribution Width 11.8 % (11.0-16.0); White Blood Count 3.9 X10*3/uL (4.8-10.8)
[2024-02-20 07:54] LABS: Alanine Aminotransferase 11 U/L (0-31); Albumin Level 4.3 g/dL (3.5-5.0); Alkaline Phosphatase 52 U/L (39-117); Anion Gap 11 (12-20); Aspartate Amino Transferase 16 U/L (5-31); Bilirubin Total 0.8 mg/dL (0.0-1.0); Blood Urea Nitrogen 21 mg/dL (9-16); Calcium 9.4 mg/dL (8.4-10.2); Carbon Dioxide 25 mmol/L (22-29); Chloride 107 mmol/L (96-108); Estimated Glomerular Filt Rate > 60; Glucose Random 101 mg/dL (60-115); Iron 138 mcg/dL (30-160); Percent Iron Saturation 57 % (15-50); Potassium 4.2 mmol/L (3.3-5.1); Sodium 139 mmol/L (135-145); Total Iron Binding Capacity 244 mcg/dL (228-428); Total Protein 6.6 g/dL (6.5-8.0); Unsaturated Iron Binding 106 ug/dL
[2024-02-20 08:04] LABS: Ferritin 65 ng/mL (10-250); Vitamin D 25-OH Total 31.7 ng/mL (>30)
[2024-02-21 18:04] LABS: DHEA Sulfate 175 mcg/dL (15-205); Sex Hormone Binding Globulin 53 nmol/L (17-124)
[2024-02-21 18:34] LABS: Follicle Stimulating Hormone 45.1 mIU/mL; Lutenizing Hormone 18.7 mIU/mL; Prolactin 9.9 ng/mL
[2024-02-21 18:47] LABS: Homocysteine 13.8 umol/L (<10.4)
[2024-02-24 11:54] LABS: Testosterone, Free 1.4 pg/mL (0.1-6.4); Testosterone, Total 16 ng/dL (2-45)
[2024-02-25 05:19] LABS: Dihydrotestosterone 11 ng/dL (< OR = 20)
[2024-02-26 02:33] LABS: Estradiol Ultra Sensitive 9 pg/mL
[2024-02-29 01:48] LABS: Progesterone <0.1 ng/mL
== END 2024-02-20 06:28 | disposition home or self-care (01) ==
LOC: HO.LAB 06:27
PROVIDERS: PCP Nurse Practitioner Family; Visit Provider Physician Assistant
DX: R53.83 Other fatigue (principal); N92.0 Excessive and frequent menstruation with regular cycle
CPT/HCPCS: 36415; 80053; 82306; 82627; 82642; 82670; 82728; 83001; 83002; 83090; 83540; 84144; 84146; 84270; 84402; 84403; 85025

== ENCOUNTER 2024-04-18 07:59 | Outpatient (AMB) | payer OTHER, SELFPAY ==
--- NOTE | 2024-04-18 08:09 | MHC.OFFVIS ---
Vital Signs 04/18/24 08:10 Height 5 ft 7 in Weight 140 lb BMI 21.9 BP 120/75 Blood Pressure Location Lt brachial Position Sitting Respiration 15 Pulse 60 Pulse Source Pulse Oximeter Pulse Oximetry (%) 99 Oxygen Delivery Method Room Air Intake Visit Reasons: pericranial nerve blocks Allergies No Known Allergies Allergy (Verified 05/02/24 08:53) Medication List - Last Reconciled 04/18/24 by Vilma Vegas LPN [[employer] cold therapy system [employer] cold therapy system, part number [id number]. PC Consider[employer] with intelli-merary shoulder pad NS] onabotulinumtoxinA (Botox) 155 units subcut .Q 3 months ondansetron 4 mg PO Q4-6H PRN sumatriptan succinate (Imitrex) 100 mg PO Q2-4H PRN HPI HPI pericranial nerve blocks: Details: 43-year-old female who presents today to the office for pericranial nerve blocks. Denies any recent cough, cold, infection, fever or other significant changes in medical history since last office visit.? Past procedures 02/04/24: Botox injections: >90% relief. 01/14/24: Jamila-cranial nerve blocks: 75% relief. 11/05/23: Botox injections. 08/10/23: Botox injections. 05/18/23: Botox injections. 02/23/23: Botox injections. 11/20/22: Botox injections. 08/21/22: Botox injections. 06/26/22: Botox injections. 03/20/22: Botox injections. 12/16/21: Botox injections. 09/23/21: Botox injections. 07/08/21: Botox injections. 04/11/21: Botox injections. 01/14/21: Chemodenervation with Botox. 12/06/20: Greater Occipital Nerve Block, Ultrasound Guided, Bilateral. [facility] Medical History Bilateral occipital neuralgia Migraine Surgical History History of endometrial ablation Social History Current occupational status: employed Current occupation: OR nurse Review of Systems Const All systems reviewed & are unremarkable except as noted in HPI and below Physical Exam Vital Signs: Last Vital Signs Pulse 60 04/18/24 08:10 Resp 15 04/18/24 08:10 BP 120/75 04/18/24 08:10 Pulse Ox 99 04/18/24 08:10 Oxygen Delivery Method Room Air 04/18/24 08:10 BMI result Body Mass Index 21.9 General: Appears afebrile. Alert and oriented. Mood and affect appropriate. Follows and participates in conversation appropriately. Respiratory effort is unlabored. Able to transition from sit to stand unassisted. Ambulates with bilaterally normal heel strike and toe off. Office Procedures Nerve Block Details: Jamila-cranial nerve blocks. After obtaining written consent, pre-procedure blood pressure and heart rate were stable and recorded in the nursing record. The patient was in the sitting position. The skin overlying the target pericranial nerves was prepped with alcohol. A 27 gauge 1.5 in needle was used. The needle was placed on the target nerves including supraorbital nerve, supratrochlear nerve, auriculotemporal nerve, lesser occipital nerve and greater occipital nerve bilaterally. Aspiration was negative for heme and synovial fluid. 0.5-1 cc of ropivacaine 0.5% was injected at each site. The skin was cleansed and hemostasis was ensured. The patient tolerated the procedure well and no complications were encountered. Following the procedure the patient's vital signs were stable. The patient was discharged home in good condition with post-procedural instructions. Time Out: Immediately prior to the procedure, the following was verbally confirmed that there is a signed consent form and that the correct patient, planned procedure, site and side are consistent with documentation and that necessary equipment and/or blood products are available prior to the start of the case. Complications: none EBL: <1 cc [id number] Peripheral Nerve Block Procedure code (CPT) selection complete Results Reviewed Results Reviewed: No imaging is available for review. Assessment & Plan Assessment & Plan (1) Headache: Code(s): R51.9 - Headache, unspecified Category: Medical (2) Bilateral occipital neuralgia: Code(s): M54.81 - Occipital neuralgia Category: Medical Plan Patient is status post jamila-cranial nerve blocks. Patient tolerated procedure well and was discharged home in stable condition with discharge instructions.? All questions were answered. We will follow-up in two weeks for repeat botox injections. Scribed for Dr. Osorio by Jeremías Agarwal, medical claims analyst, on 04/18/2024. I, Dr. Osorio, have personally reviewed and agree with the information entered by the scribe. Coding Level of Care Code Procedure Only Diagnoses Headache R51.9 Bilateral occipital neuralgia M54.81 CPT Codes Nerve Block - Nerve Block 8: [id number] Peripheral Nerve Block ([id number])
[2024-04-18 08:10] VITALS: BP 120/75; PULSE 60; RESP 15; O2SAT 99; BMI 21.9
== END 2024-04-18 08:29 | disposition home or self-care (01) ==
LOC: HO.PMC 08:00
PROVIDERS: PCP Nurse Practitioner Family; Visit Provider Internal Medicine
DX: M54.81 Occipital neuralgia (principal); M51.9 Unspecified thoracic, thoracolumbar and lumbosacral intervertebral disc disorder
CPT/HCPCS: 64400; 64405; 64450

== ENCOUNTER → 2024-04-18 07:59 | Outpatient (BNVA) | payer OTHER, SELFPAY | PROVIDERS: PCP Nurse Practitioner Family; Visit Provider Internal Medicine | DX: R51.9 Headache, unspecified (principal); M54.81 Occipital neuralgia | CPT/HCPCS: 64400; 64405; 64450; J2795 ==

== ENCOUNTER 2024-05-02 08:50 | Outpatient (AMB) | payer OTHER, SELFPAY ==
--- NOTE | 2024-05-02 08:51 | A.OFFVIS_ITS ---
Vital Signs 05/02/24 08:52 Height 5 ft 7 in Weight 140 lb BMI 21.9 BP 122/76 Blood Pressure Location Lt brachial Position Sitting Respiration 15 Pulse 64 Pulse Source Pulse Oximeter Pulse Oximetry (%) 100 Oxygen Delivery Method Room Air Intake Visit Reasons: Botox Allergies No Known Allergies Allergy (Verified 05/02/24 08:53) Medication List - Last Reconciled 05/02/24 by Vilma Vegas LPN [[facility] [employer] cold therapy system [facility] [employer] cold therapy system, part number [id number]. Mabel with intelli-merary shoulder pad NS] onabotulinumtoxinA (Botox) 155 units subcut .Q 3 months ondansetron 4 mg PO Q4-6H PRN sumatriptan succinate (Imitrex) 100 mg PO Q2-4H PRN HPI HPI Botox: Details: 43-year-old female who presents today to the office for botox injections. Denies any recent cough, cold, infection, fever or other significant changes in medical history since last office visit.? Past procedures 04/18/24: Jamila-cranial nerve blocks: 75% relief. 02/04/24: Botox injections: 90% relief for 3 months. 01/14/24: Jamila-cranial nerve blocks: 75% relief. 11/05/23: Botox injections. 90% relief for 3 months. 08/10/23: Botox injections. 90% relief for 3 months. 05/18/23: Botox injections. 90% relief for 3 months. 02/23/23: Botox injections. 90% relief for 3 months. 11/20/22: Botox injections. 90% relief for 3 months. 08/21/22: Botox injections. 90% relief for 3 months. 06/26/22: Botox injections. 90% relief for 3 months. 03/20/22: Botox injections. 90% relief for 3 months. 12/16/21: Botox injections. 90% relief for 3 months. 09/23/21: Botox injections. 90% relief for 3 months. 07/08/21: Botox injections. 90% relief for 3 months. 04/11/21: Botox injections. 90% relief for 3 months. 01/14/21: Chemodenervation with Boto 90% relief for 3 months.. 12/06/20: Greater Occipital Nerve Block, Ultrasound Guided, Bilateral. No relief. [facility] Medical History Bilateral occipital neuralgia Migraine Surgical History History of endometrial ablation Social History Current occupational status: employed Current occupation: OR nurse Review of Systems Const All systems reviewed & are unremarkable except as noted in HPI and below Physical Exam Vital Signs: Last Vital Signs Pulse 64 05/02/24 08:52 Resp 15 05/02/24 08:52 BP 122/76 05/02/24 08:52 Pulse Ox 100 05/02/24 08:52 Oxygen Delivery Method Room Air 05/02/24 08:52 BMI result Body Mass Index 21.9 General: Appears afebrile. Alert and oriented. Mood and affect appropriate. Follows and participates in conversation appropriately. Respiratory effort is unlabored. Able to transition from sit to stand unassisted. Ambulates with bilaterally normal heel strike and toe off. Office Procedures Botulinum toxin Injection Details: Chemodenervation of Scalp and Neck for Chronic Migraine (155 units as per protocol approved by FDA) After obtaining written consent, pre-procedure blood pressure and heart rate were stable and recorded in the nursing record. The patient was placed in the sitting position. Bilaterally, 31 points along dealmaker (2 sites), procerus (1 site), frontalis (4 sites), temporalis (8 sites), occipitalis (6 sites), cervical paraspinals (4 sites), and trapezius (6 sites) were identified and prepped with alcohol. Using sterile technique, a 30 gauge 0.5 inch needle (for all sites other than trapezius) and 25 gauge 1.5 inch (for trapezius only) needle was introduced into each muscle and 5 units per site was injected. A total of 155 units were used. Aspirations were negative for blood, CSF and air prior to injection at all sites. The needle was removed, skin cleansed and a sterile bandage was applied where needed. The patient tolerated the procedure well and no complications were encountered. Following the procedure the patient's vital signs were stable. The patient was discharged home in good condition with post-procedural instructions. Time Out: Immediately prior to the procedure, the following was verbally confirmed that there is a signed consent form and that the correct patient, planned procedure, site and side are consistent with documentation and that necessary equipment and/or blood products are available prior to the start of the case. Complications: none EBL: <5 cc 68002 - Migraine Procedure code (CPT) selection complete Office Meds onabotulinumtoxinA 200 unit solution for injection Performing Provider: Akbar Osorio MD Performing Location: [facility] Administered by: Akbar Osorio MD on 05/13/24 08:43 Dose Route Admin Location Dispensed Lot Number Expiration Date NDC [employer] Nurse Supervisor 200 unit IM 155 ea [id number] 08/16/26 Results Reviewed Results Reviewed: No imaging is available for review. Assessment & Plan Assessment & Plan (1) Headache: Code(s): R51.9 - Headache, unspecified Category: Medical (2) Migraine: Code(s): G43.909 - Migraine, unspecified, not intractable, without status migrainosus Category: Medical Qualifiers: Migraine type: chronic without aura Status migrainosus presence: with status migrainosus Intractability: intractable Qualified Code(s): G43.711 - Chronic migraine without aura, intractable, with status migrainosus Plan Patient is status post Botox injections. Patient tolerated procedure well and was discharged home in stable condition with discharge instructions.? All questions were answered. Follow-up in 10 weeks for pericranial nerve blocks as needed. Scribed for Dr. Osorio by Jeremías Agarwal medical laboratory specialist, on 05/02/2024. I, Dr. Osorio, have personally reviewed and agree with the information entered by the scribe. Orders: Orders AMB Botulinum toxin Injection 05/02/24 G43.909 - Migraine, unspecified, not intractable, without status migrainosus Medications: New onabotulinumtoxinA 200 units IM ONCE 1 ea 0RF G43.909 - Migraine, unspecified, not intractable, without status migrainosus Coding Level of Care Code Procedure Only Diagnoses Headache R51.9 Intractable chronic migraine without aura and with status migrainosus G43.711 Migraine type: chronic without aura Status migrainosus presence: with status migrainosus Intractability: intractable CPT Codes Botox Injection - Botox 3: 64756 - Migraine ([id number])
[2024-05-02 08:52] VITALS: BP 122/76; PULSE 64; RESP 15; O2SAT 100; BMI 21.9
== END 2024-05-02 09:32 | disposition home or self-care (01) ==
PROVIDERS: PCP Nurse Practitioner Family; Visit Provider Internal Medicine
DX: G43.711 Chronic migraine without aura, intractable, with status migrainosus (principal)
CPT/HCPCS: 64615

== ENCOUNTER → 2024-05-02 08:50 | Outpatient (BNVA) | payer OTHER, SELFPAY | PROVIDERS: PCP Nurse Practitioner Family; Visit Provider Internal Medicine | DX: G43.711 Chronic migraine without aura, intractable, with status migrainosus (principal) | CPT/HCPCS: 64615; J0585 ==

== ENCOUNTER 2024-05-03 07:26 | Outpatient (REF) | payer OTHER, SELFPAY ==
--- NOTE | ~2024-05-03 | MM_ITS ---
EXAMINATION: MM SCREENING DIGITAL BREAST TOMOSYNTHESIS, BILATERAL CLINICAL INFORMATION: Screening. Asymptomatic. COMPARISON: Mammography: Comparison is made with available priors TECHNIQUE: Digital breast mammography with tomosynthesis is performed in both the craniocaudal and mediolateral oblique views along with computer-aided detection (CAD). FINDINGS: There are scattered areas of fibroglandular density (ACR BI-RADS breast composition Category b). Bilateral reduction mammoplasty changes are stable. There are no significant masses, abnormal calcifications, or other abnormalities. MM/MM tomosynthesis screening BI IMPRESSION: No mammographic evidence of malignancy. ASSESSMENT: BI-RADS BI-RADS 2 - Benign Findings RECOMMENDATION: Routine annual mammography screening. 1 year F/U This examination should not preclude the clinical evaluation of a suspicious palpable abnormality. This patient's information was entered into a reminder system with a target due date for their next mammogram. Electronically signed by: Belkys Falcon DO 05/13/2024 10:57 AM BERNA
== END 2024-05-03 07:27 | disposition home or self-care (01) ==
LOC: HO.MAMMO 07:26
PROVIDERS: PCP Nurse Practitioner Family; Visit Provider Nurse Practitioner Family
DX: Z12.31 Encounter for screening mammogram for malignant neoplasm of breast (principal)
CPT/HCPCS: 77063; 77067

== ENCOUNTER → 2024-05-03 07:45 | Outpatient (BNV) | payer OTHER, SELFPAY | PROVIDERS: PCP Nurse Practitioner Family; Visit Provider Internal Medicine | DX: Z12.31 Encounter for screening mammogram for malignant neoplasm of breast (principal) | CPT/HCPCS: 77063; 77067 ==

== ENCOUNTER → 2024-07-25 09:05 | Outpatient (BNVA) | payer OTHER, SELFPAY | PROVIDERS: PCP Nurse Practitioner Family; Visit Provider Internal Medicine | DX: G43.711 Chronic migraine without aura, intractable, with status migrainosus (principal) | CPT/HCPCS: 64615; J0585 ==

== ENCOUNTER → 2024-07-25 09:05 | Outpatient (AMB) | payer OTHER, SELFPAY ==
--- NOTE | 2024-07-25 09:10 | A.OFFVIS_ITS ---
Vital Signs 07/25/24 09:13 Height 5 ft 7 in Weight 140 lb BMI 21.9 BP 114/76 Blood Pressure Location Lt brachial Position Sitting Respiration 16 Pulse 75 Pulse Source Pulse Oximeter Pulse Oximetry (%) 99 Oxygen Delivery Method Room Air Intake Visit Reasons: Botox Roofing Superintendent Required: No Evening Sitter: Evening Sitter Present Accompanied by: Jayce Cardozo Allergies No Known Allergies Allergy (Verified 07/25/24 09:14) Medication List - Last Reconciled 07/25/24 by Vilma Vegas LPN [[employer] cold therapy system [employer] cold therapy system, part number [id number]. PC [employer] with intelli-merary shoulder pad NS] onabotulinumtoxinA (Botox) 155 units subcut .Q 3 months ondansetron 4 mg PO Q4-6H PRN sumatriptan succinate (Imitrex) 100 mg PO Q2-4H PRN PFSH Medical History Bilateral occipital neuralgia Migraine Surgical History History of endometrial ablation Social History Current occupational status: employed Current occupation: OR nurse Physical Exam Vital Signs: Last Vital Signs Pulse 75 07/25/24 09:13 Resp 16 07/25/24 09:13 BP 114/76 07/25/24 09:13 Pulse Ox 99 07/25/24 09:13 Oxygen Delivery Method Room Air 07/25/24 09:13 BMI result Body Mass Index 21.9 Office Procedures Botulinum toxin Injection Details: Chemodenervation of Scalp and Neck for Chronic Migraine (155 units as per protocol approved by FDA) After obtaining written consent, pre-procedure blood pressure and heart rate were stable and recorded in the nursing record. The patient was placed in the sitting position. Bilaterally, 31 points along clinical care coordinator (2 sites), procerus (1 site), frontalis (4 sites), temporalis (8 sites), occipitalis (6 sites), cervical paraspinals (4 sites), and trapezius (6 sites) were identified and prepped with alcohol. Using sterile technique, a 30 gauge 0.5 inch needle (for all sites other than trapezius) and 25 gauge 1.5 inch (for trapezius only) needle was introduced into each muscle and 5 units per site was injected. A total of 155 units were used. Aspirations were negative for blood, CSF and air prior to injection at all sites. The needle was removed, skin cleansed and a sterile bandage was applied where needed. The patient tolerated the procedure well and no complications were encountered. Following the procedure the patient's vital signs were stable. The patient was discharged home in good condition with post-procedural instructions. Time Out: Immediately prior to the procedure, the following was verbally confirmed that there is a signed consent form and that the correct patient, planned procedure, site and side are consistent with documentation and that necessary equipment and/or blood products are available prior to the start of the case. Complications: none EBL: <5 cc 00204 - Migraine Procedure code (CPT) selection complete Office Meds onabotulinumtoxinA 200 unit solution for injection Performing Provider: Akbar Osorio MD Performing Location: [facility] Administered by: Akbar Osorio MD on 07/25/24 09:45 Dose Route Admin Location Dispensed Lot Number Expiration Date NDC Jewelry Sales Associate 200 unit IM 200 units [id number] 09/16/26 1534-2018-28 ALLERGAN/BOTOX Assessment & Plan Assessment & Plan (1) Migraine: Code(s): G43.909 - Migraine, unspecified, not intractable, without status migrainosus Category: Medical Qualifiers: Migraine type: chronic without aura Status migrainosus presence: with status migrainosus Intractability: intractable Qualified Code(s): G43.711 - Chronic migraine without aura, intractable, with status migrainosus Plan Patient is status post botox for migraine. Patient tolerated procedure well and was discharged home in stable condition with discharge instructions. All questions were answered. We will follow-up via telephone or in clinic to assess response to therapy. A follow-up appointment was made during today's visit. Orders: Orders AMB Botulinum toxin Injection Today G43.909 - Migraine, unspecified, not intractable, without status migrainosus Medications: New onabotulinumtoxinA 200 units IM ONCE 1 ea 0RF G43.909 - Migraine, unspecified, not intractable, without status migrainosus Coding Level of Care Code Procedure Only Diagnoses Intractable chronic migraine without aura and with status migrainosus G43.711 Migraine type: chronic without aura Status migrainosus presence: with status migrainosus Intractability: intractable CPT Codes Botox Injection - Botox 3: 76081 - Migraine ([id number])
== END | disposition home or self-care (01) ==
PROVIDERS: PCP Nurse Practitioner Family; Visit Provider Internal Medicine
CPT/HCPCS: 64615

== ENCOUNTER 2024-09-26 09:08 | Outpatient (AMB) | payer OTHER, SELFPAY ==
--- NOTE | 2024-09-26 09:22 | A.OFFVIS_ITS ---
Vital Signs 09/26/24 09:24 Height 5 ft 7 in Weight 140 lb BMI 21.9 BP 110/73 Blood Pressure Location Lt brachial Position Sitting Respiration 16 Pulse 69 Pulse Source Pulse Oximeter Pulse Oximetry (%) 100 Oxygen Delivery Method Room Air Intake Visit Reasons: Nerve block Tip Stitcher Required: No Ships Or Barges Loader: Ships Or Barges Loader Present Accompanied by: Jayce Cardozo Allergies No Known Allergies Allergy (Verified 09/26/24 09:24) Medication List - Last Reconciled 09/26/24 by Vilma Vegas LPN [[employer] cold therapy system [employer] cold therapy system, part number [id number]. PC Glokalise with intelli-merary shoulder pad NS] onabotulinumtoxinA (Botox) 155 units subcut .Q 3 months ondansetron 4 mg PO Q4-6H PRN sumatriptan succinate (Imitrex) 100 mg PO Q2-4H PRN HPI HPI Nerve block: Details: Jamila-cranial nerve blocks. After obtaining written consent, pre-procedure blood pressure and heart rate were stable and recorded in the nursing record. The patient was in the sitting position. The skin overlying the target pericranial nerves was prepped with alcohol. A 27 gauge 1.5 in needle was used. The needle was placed on the target nerves including supraorbital nerve, supratrochlear nerve, auriculotemporal nerve, lesser occipital nerve and greater occipital nerve bilaterally. Aspiration was negative for heme and synovial fluid. 0.5-1 cc of ropivacaine 0.5% was injected at each site. The skin was cleansed and hemostasis was ensured. The patient tolerated the procedure well and no complications were encountered. Following the procedure the patient's vital signs were stable. The patient was discharged home in good condition with post-procedural instructions. Time Out: Immediately prior to the procedure, the following was verbally confirmed that there is a signed consent form and that the correct patient, planned procedure, site and side are consistent with documentation and that necessary equipment and/or blood products are available prior to the start of the case. Complications: none EBL: <1 cc [facility] Medical History Bilateral occipital neuralgia Migraine Surgical History History of endometrial ablation Social History Current occupational status: employed Current occupation: OR nurse Physical Exam Vital Signs: Last Vital Signs Pulse 69 09/26/24 09:24 Resp 16 09/26/24 09:24 BP 110/73 09/26/24 09:24 Pulse Ox 100 09/26/24 09:24 Oxygen Delivery Method Room Air 09/26/24 09:24 BMI result Body Mass Index 21.9 Assessment & Plan Assessment & Plan (1) Headache: Code(s): R51.9 - Headache, unspecified Category: Medical Plan F/u in 2 weeks for botox injection. Coding Level of Care Code Procedure Only Diagnoses Headache R51.9
[2024-09-26 09:24] VITALS: BP 110/73; PULSE 69; RESP 16; O2SAT 100; BMI 21.9
== END 2024-09-26 09:43 | disposition home or self-care (01) ==
LOC: HO.PMC 09:08
PROVIDERS: Visit Provider Internal Medicine
DX: R51.9 Headache, unspecified (principal)
CPT/HCPCS: 64400; 64405; 64450

== ENCOUNTER → 2024-09-26 09:08 | Outpatient (BNVA) | payer OTHER, SELFPAY | PROVIDERS: Visit Provider Internal Medicine | DX: R51.9 Headache, unspecified (principal) | CPT/HCPCS: 64400; 64405; 64450 ==

== ENCOUNTER 2024-10-10 09:04 | Outpatient (AMB) | payer OTHER, SELFPAY ==
--- NOTE | 2024-10-10 09:06 | MHC.OFFVIS ---
Vital Signs 10/10/24 09:08 Height 5 ft 7 in Weight 140 lb BMI 21.9 BP 110/68 Blood Pressure Location Lt brachial Position Sitting Respiration 16 Pulse 75 Pulse Source Pulse Oximeter Pulse Oximetry (%) 98 Oxygen Delivery Method Room Air Intake Visit Reasons: Botox Allergies No Known Allergies Allergy (Verified 10/10/24 09:09) Medication List - Last Reconciled 10/10/24 by Vilma Vegas LPN [[facility] [employer] cold therapy system [employer] cold therapy system, part number [id number]. Greig with intelli-merary shoulder pad NS] onabotulinumtoxinA (Botox) 155 units subcut .Q 3 months ondansetron 4 mg PO Q4-6H PRN sumatriptan succinate (Imitrex) 100 mg PO Q2-4H PRN HPI HPI Botox: Details: Patient presents for scheduled procedure. Denies any recent cough, cold, infection, fever or other significant changes in medical history since last office visit. [facility] Medical History Bilateral occipital neuralgia Migraine Surgical History History of endometrial ablation Social History Current occupational status: employed Current occupation: OR nurse Physical Exam Vital Signs: Last Vital Signs Pulse 75 10/10/24 09:08 Resp 16 10/10/24 09:08 BP 110/68 10/10/24 09:08 Pulse Ox 98 10/10/24 09:08 Oxygen Delivery Method Room Air 10/10/24 09:08 BMI result Body Mass Index 21.9 Office Procedures Botulinum toxin Injection Details: Chemodenervation of Scalp and Neck for Chronic Migraine (155 units as per protocol approved by FDA) After obtaining written consent, pre-procedure blood pressure and heart rate were stable and recorded in the nursing record. The patient was placed in the sitting position. Bilaterally, 31 points along laser beam machine operator (2 sites), procerus (1 site), frontalis (4 sites), temporalis (8 sites), occipitalis (6 sites), cervical paraspinals (4 sites), and trapezius (6 sites) were identified and prepped with alcohol. Using sterile technique, a 30 gauge 0.5 inch needle (for all sites other than trapezius) and 25 gauge 1.5 inch (for trapezius only) needle was introduced into each muscle and 5 units per site was injected. A total of 155 units were used. Aspirations were negative for blood, CSF and air prior to injection at all sites. The needle was removed, skin cleansed and a sterile bandage was applied where needed. The patient tolerated the procedure well and no complications were encountered. Following the procedure the patient's vital signs were stable. The patient was discharged home in good condition with post-procedural instructions. Time Out: Immediately prior to the procedure, the following was verbally confirmed that there is a signed consent form and that the correct patient, planned procedure, site and side are consistent with documentation and that necessary equipment and/or blood products are available prior to the start of the case. Complications: none EBL: <5 cc 89691 - Migraine Procedure code (CPT) selection complete Office Meds onabotulinumtoxinA 200 unit solution for injection Performing Provider: Akbar Osorio MD Performing Location: [facility] [place] [facility] Administered by: Akbar Osorio MD on 10/10/24 09:52 Dose Route Admin Location Dispensed Lot Number Expiration Date [facility] Ornamental Ironworker Helper 200 unit IM 155 ea [id number] 09/16/26 Assessment & Plan Assessment & Plan (1) Migraine: Code(s): G43.909 - Migraine, unspecified, not intractable, without status migrainosus Category: Medical Qualifiers: Intractability: intractable Migraine type: chronic without aura Status migrainosus presence: with status migrainosus Qualified Code(s): G43.711 - Chronic migraine without aura, intractable, with status migrainosus Plan Patient is status post botox protocol migraine. Patient tolerated procedure well and was discharged home in stable condition with discharge instructions. All questions were answered. We will follow-up via telephone or in clinic to assess response to therapy. A follow-up appointment was made during today's visit. Orders: Orders AMB Botulinum toxin Injection 10/10/24 G43.909 - Migraine, unspecified, not intractable, without status migrainosus Coding Level of Care Code Procedure Only Diagnoses Intractable chronic migraine without aura and with status migrainosus G43.711 Intractability: intractable Migraine type: chronic without aura Status migrainosus presence: with status migrainosus CPT Codes Botox Injection - Botox 3: 60142 - Migraine ([id number])
[2024-10-10 09:08] VITALS: BP 110/68; PULSE 75; RESP 16; O2SAT 98; BMI 21.9
== END 2024-10-10 09:51 | disposition home or self-care (01) ==
LOC: HO.PMC 09:04
PROVIDERS: Visit Provider Internal Medicine
DX: G43.711 Chronic migraine without aura, intractable, with status migrainosus (principal)
CPT/HCPCS: 64615

== ENCOUNTER → 2024-10-10 09:04 | Outpatient (BNVA) | payer OTHER, SELFPAY | PROVIDERS: Visit Provider Internal Medicine | DX: G43.711 Chronic migraine without aura, intractable, with status migrainosus (principal) | CPT/HCPCS: 64615; J0585 ==

== ENCOUNTER 2024-12-17 09:23 | Outpatient (AMB) | payer OTHER, SELFPAY ==
--- NOTE | 2024-12-17 09:28 | A.OFFVIS_ITS ---
Vital Signs 12/17/24 09:29 Height 5 ft 7 in Weight 140 lb BMI 21.9 BP 110/78 Blood Pressure Location Lt brachial Position Sitting Respiration 16 Pulse 73 Pulse Source Pulse Oximeter Pulse Oximetry (%) 100 Oxygen Delivery Method Room Air Intake Visit Reasons: Pericranial NB Head Refrigeration Engineer Required: No Medical Records Assistant: Medical Records Assistant Present Accompanied by: Jayce Cardozo Allergies No Known Allergies Allergy (Verified 12/17/24 09:30) Medication List - Last Reconciled 12/17/24 by Vilma Vegas LPN [Easy Square Feet cold therapy system [place] cold therapy system, part number [id number]. PC Spriggle Kids with intelli-merary shoulder pad NS] onabotulinumtoxinA (Botox) 155 units subcut .Q 3 months ondansetron 4 mg PO Q4-6H PRN sumatriptan succinate (Imitrex) 100 mg PO Q2-4H PRN HPI HPI Pericranial NB: Details: Patient presents for scheduled procedure. Denies any recent cough, cold, infection, fever or other significant changes in medical history since last office visit. [facility] Medical History Bilateral occipital neuralgia Migraine Surgical History History of endometrial ablation Social History Current occupational status: employed Current occupation: OR nurse Physical Exam Vital Signs: Last Vital Signs Pulse 73 12/17/24 09:29 Resp 16 12/17/24 09:29 BP 110/78 12/17/24 09:29 Pulse Ox 100 12/17/24 09:29 Oxygen Delivery Method Room Air 12/17/24 09:29 BMI result Body Mass Index 21.9 Office Procedures Nerve Block Details: Jamila-cranial nerve blocks After obtaining written consent, pre-procedure blood pressure and heart rate were stable and recorded in the nursing record. The patient was in the sitting position. The skin overlying the target pericranial nerves was prepped with alcohol. A 27 gauge 1.5 in needle was used. The needle was placed on the target nerves including supraorbital nerve, supratrochlear nerve, auriculotemporal nerve, lesser occipital nerve and greater occipital nerve bilaterally. Aspiration was negative for heme and synovial fluid. 0.5-1 cc of ropivacaine 0.5% was injected at each site, except GONB where 2 mL was injected in a fanned motion. The skin was cleansed and hemostasis was ensured. The patient tolerated the procedure well and no complications were encountered. Following the procedure the patient's vital signs were stable. The patient was discharged home in good condition with post-procedural instructions. Time Out: Immediately prior to the procedure, the following was verbally confirmed that there is a signed consent form and that the correct patient, planned procedure, site and side are consistent with documentation and that necessary equipment and/or blood products are available prior to the start of the case. Complications: none EBL: <1 cc CPT: 93836-Ctpvaye Occipital 41053-Zqjpr Peripheral Nerve Block Additional procedure code (CPT) needed Assessment & Plan Assessment & Plan (1) Bilateral occipital neuralgia: Code(s): M54.81 - Occipital neuralgia Category: Medical (2) Headache: Code(s): R51.9 - Headache, unspecified Category: Medical Plan . Coding Level of Care Code Procedure Only Diagnoses Bilateral occipital neuralgia M54.81 Headache R51.9 CPT Codes Nerve Block - CPT: 26016-Bnhxjej Occipital ([id number]) Nerve Block - Nerve Block 8: 90210-Tpxvm Peripheral Nerve Block ([id number])
[2024-12-17 09:29] VITALS: BP 110/78; PULSE 73; RESP 16; O2SAT 100; BMI 21.9
== END 2024-12-17 09:48 | disposition home or self-care (01) ==
LOC: HO.PMC 09:23
PROVIDERS: Visit Provider Internal Medicine
DX: M54.81 Occipital neuralgia (principal); R51.9 Headache, unspecified
CPT/HCPCS: 64405; 64450

== ENCOUNTER → 2024-12-17 09:23 | Outpatient (BNVA) | payer OTHER, SELFPAY | PROVIDERS: Visit Provider Internal Medicine | DX: M54.81 Occipital neuralgia (principal); R51.9 Headache, unspecified | CPT/HCPCS: 64405; 64450; J2795 ==

== ENCOUNTER 2025-01-02 09:01 | Outpatient (AMB) | payer OTHER, SELFPAY ==
--- OUTSIDE RECORDS SUMMARY | 2025-01-02 09:04 | XMS_ITS | Encounter Summary ---
Author Organization [facility] Address [address] [address] Phone Care Team Providers Care President [employer] Name Role Phone Nel Caceres AUTOMOBILE UPHOLSTERY TRIM INSTALLER Primary Care Provider Unavaila ble Nel Caceres AUTOMOBILE UPHOLSTERY TRIM INSTALLER Unavailable Unavailable Encounter Details Date Type Department Care Team (Late st Contact Info) Description 06/09/2022 Procedure Pass OR Admitting Dept - Virtual Department [address] [place] [address] Social History Tobacco Use Types Packs/Day Years Used Date Smoking Tobacco: Never Smokeless Tobacco: Never Alcohol Use Standard Drinks/Week Comments Yes 2 (1 standard drink = 0.6 oz pur e alcohol) Comments No Sex and Gender Information Value Date Recorded Sex Assigned at Female 03/04/2019 4:23 PM EDT Legal Sex Female 10:29 PM EDT Gender Identity Female 03/04/2019 4:23 PM EDT Sexual Orientation Straight 03/04/2019 4: 23 PM EDT documented as of this encounter Plan of Treatment Not on file documented as of this encounter Visit Diagnoses Not on filedocumented in this encounter Care Teams President [employer] Relationship Specialty Start Date End Date Nel Caceres NP PCP - General Family Medicine 01/30/22 Nel Caceres NP 03/04/19 documented as of this encounter Additional Source Comments The information contained in this document represents components of the legal health record. It is not the complete legal health record.[facility]
--- NOTE | 2025-01-02 09:06 | MHC.OFFVIS ---
Vital Signs 01/02/25 09:09 Height 5 ft 7 in Weight 140 lb BMI 21.9 BP 108/68 Blood Pressure Location Lt brachial Position Sitting Respiration 16 Pulse 59 Pulse Source Pulse Oximeter Pulse Oximetry (%) 99 Oxygen Delivery Method Room Air Intake Visit Reasons: Botox Physics Department Chair Required: No Orthophotography Technician: Orthophotography Technician Present Accompanied by: Jayce Cardozo Allergies No Known Allergies Allergy (Verified 01/02/25 09:09) Medication List - Last Reconciled 01/02/25 by Vilma Vegas LPN [[employer]Bark cold therapy system FAD ? IO cold therapy system, part number [id number]. PC [employer] Continuity with intelli-merary shoulder pad NS] onabotulinumtoxinA (Botox) 155 units subcut .Q 3 months ondansetron 4 mg PO Q4-6H PRN sumatriptan succinate (Imitrex) 100 mg PO Q2-4H PRN HPI HPI Botox: Details: Patient presents for scheduled procedure. Denies any recent cough, cold, infection, fever or other significant changes in medical history since last office visit. [facility] Medical History Bilateral occipital neuralgia Migraine Surgical History History of endometrial ablation Social History Current occupational status: employed Current occupation: OR nurse Physical Exam Vital Signs: Last Vital Signs Pulse 59 01/02/25 09:09 Resp 16 01/02/25 09:09 BP 108/68 01/02/25 09:09 Pulse Ox 99 01/02/25 09:09 Oxygen Delivery Method Room Air 01/02/25 09:09 BMI result Body Mass Index 21.9 Office Procedures Botulinum toxin Injection Details: Chemodenervation of Scalp and Neck for Chronic Migraine (155 units as per protocol approved by FDA) After obtaining written consent, pre-procedure blood pressure and heart rate were stable and recorded in the nursing record. The patient was placed in the sitting position. Bilaterally, 31 points along nuclear cardiology technologist (2 sites), procerus (1 site), frontalis (4 sites), temporalis (8 sites), occipitalis (6 sites), cervical paraspinals (4 sites), and trapezius (6 sites) were identified and prepped with alcohol. Using sterile technique, a 30 gauge 0.5 inch needle (for all sites other than trapezius) and 25 gauge 1.5 inch (for trapezius only) needle was introduced into each muscle and 5 units per site was injected. A total of 155 units were used. Aspirations were negative for blood, CSF and air prior to injection at all sites. The needle was removed, skin cleansed and a sterile bandage was applied where needed. The patient tolerated the procedure well and no complications were encountered. Following the procedure the patient's vital signs were stable. The patient was discharged home in good condition with post-procedural instructions. Time Out: Immediately prior to the procedure, the following was verbally confirmed that there is a signed consent form and that the correct patient, planned procedure, site and side are consistent with documentation and that necessary equipment and/or blood products are available prior to the start of the case. Complications: none EBL: <5 cc 24813 - Migraine Procedure code (CPT) selection complete Office Meds onabotulinumtoxinA 200 unit solution for injection Performing Provider: Akbar Osorio MD Performing Location: [facility] Administered by: Akbar Osorio MD on 01/02/25 10:58 Dose Route Admin Location Dispensed Lot Number Expiration Date [facility] Coding Compliance Specialist 200 unit IM 155 ea [id number] 03/18/27 Total Dispensed Waste 155 ea 0 % Assessment & Plan Assessment & Plan (1) Migraine: Code(s): G43.909 - Migraine, unspecified, not intractable, without status migrainosus Category: Medical Qualifiers: Migraine type: chronic without aura Status migrainosus presence: with status migrainosus Intractability: intractable Qualified Code(s): G43.711 - Chronic migraine without aura, intractable, with status migrainosus Plan Patient is status post botox migraine protocol. Patient tolerated procedure well and was discharged home in stable condition with discharge instructions. All questions were answered. We will follow-up via telephone or in clinic to assess response to therapy. A follow-up appointment was made during today's visit. Orders: Orders AMB Botulinum toxin Injection Today G43.909 - Migraine, unspecified, not intractable, without status migrainosus Coding Level of Care Code Procedure Only Diagnoses Intractable chronic migraine without aura and with status migrainosus G43.711 Migraine type: chronic without aura Status migrainosus presence: with status migrainosus Intractability: intractable CPT Codes Botox Injection - Botox 3: 25328 - Migraine ([id number])
[2025-01-02 09:09] VITALS: BP 108/68; PULSE 59; RESP 16; O2SAT 99; BMI 21.9
== END 2025-01-02 09:50 | disposition home or self-care (01) ==
PROVIDERS: Visit Provider Internal Medicine
DX: G43.711 Chronic migraine without aura, intractable, with status migrainosus (principal)
CPT/HCPCS: 64615

== ENCOUNTER → 2025-01-02 09:01 | Outpatient (BNVA) | payer OTHER, SELFPAY | PROVIDERS: Visit Provider Internal Medicine | DX: G43.711 Chronic migraine without aura, intractable, with status migrainosus (principal); M54.81 Occipital neuralgia | CPT/HCPCS: 64615; J0585 ==

== ENCOUNTER 2025-03-13 09:05 | Outpatient (AMB) | payer OTHER, SELFPAY ==
--- NOTE | 2025-03-13 09:11 | MHC.OFFVIS ---
Vital Signs 03/13/25 09:13 Height 5 ft 7 in Weight 140 lb BMI 21.9 BP 100/62 Blood Pressure Location Lt brachial Position Sitting Respiration 16 Pulse 80 Pulse Source Pulse Oximeter Pulse Oximetry (%) 99 Oxygen Delivery Method Room Air Intake Visit Reasons: Pericranial NB Analyst Geochemical Prospecting Required: No Thread Weaver: Thread Weaver Present Accompanied by: Jayce Cardozo Allergies No Known Allergies Allergy (Verified 03/13/25 09:14) Medication List - Last Reconciled 03/13/25 by Vilma Vegas LPN [[employer] cold therapy system [employer] cold therapy system, part number [id number]. PC [place] with intelli-merary shoulder pad NS] onabotulinumtoxinA (Botox) 155 units subcut .Q 3 months ondansetron 4 mg PO Q4-6H PRN sumatriptan succinate (Imitrex) 100 mg PO Q2-4H PRN HPI HPI Pericranial NB: Details: History of Present Illness The patient is a 44-year-old female presenting with migraine management. She reported taking Imitrex the previous night due to a migraine episode. The migraine caused her to wake up at 2:00 and 4:00 AM, although she was able to fall back asleep afterward. Pain Description - Migraine onset occurred the previous night, requiring Imitrex administration. - Pain caused awakening at 2:00 and 4:00 AM, but sleep was resumed. Pain Management - Analgesia: Patient used Imitrex for migraine relief. Procedure - Pericranial nerve blocks were performed with informed consent obtained. - Patient was positioned sitting, and Ropivacaine 0.5% was used as a local anesthetic. 1-2 mL on each nerve. - Injections were administered bilaterally to the supraorbital, auriculotemporal, greater occipital, and lesser occipital nerves. - The procedure was well tolerated with 1 cc of blood loss. [facility] Medical History Bilateral occipital neuralgia Migraine Surgical History History of endometrial ablation Social History Current occupational status: employed Current occupation: OR nurse Physical Exam Vital Signs: Last Vital Signs Pulse 80 03/13/25 09:13 Resp 16 03/13/25 09:13 BP 100/62 03/13/25 09:13 Pulse Ox 99 03/13/25 09:13 Oxygen Delivery Method Room Air 03/13/25 09:13 BMI result Body Mass Index 21.9 Assessment & Plan Assessment & Plan (1) Bilateral occipital neuralgia: Code(s): M54.81 - Occipital neuralgia Category: Medical (2) Headache: Code(s): R51.9 - Headache, unspecified Category: Medical Plan Plan Patient was informed and verbally consented to the use of an ambient scribe for clinic note documentation during this visit. 1. Migraine - Continue current medication regimen with Imitrex as needed for acute migraine episodes. - Follow-up scheduled in 2 weeks for Botox injection as part of ongoing migraine management. Discussion Notes I discussed with the patient the procedure of pericranial nerve blocks, including the risks and benefits. Informed consent was obtained prior to the procedure. We also planned a follow-up in 2 weeks for a Botox injection to further manage her migraines. Patient Instructions - Continue taking Imitrex as needed for migraine relief. - Schedule and attend follow-up appointment in 2 weeks for Botox injection. Coding Level of Care Code Procedure Only Diagnoses Bilateral occipital neuralgia M54.81 Headache R51.9
[2025-03-13 09:13] VITALS: BP 100/62; PULSE 80; RESP 16; O2SAT 99; BMI 21.9
--- OUTSIDE RECORDS SUMMARY | 2025-03-13 09:45 | XMS_ITS | Clinical Summary ---
Author Organization [facility] Address [address] [place] [address] Phone Care Team Providers Care Marble Ceiling Installer Name Role Phone Nel Caceres NP Primary Care Provider [phone] Nel Caceres NP Unavailable [phone] Allergies No known active allergies Medications SUMAtriptan (IMITREX) 100 MG tablet Take 100 mg by mouth every 2 (two) hours as needed for migraine. Not to exceed 200 mg/day Active ondansetron (ZOFRAN) 4 MG tablet Take 4 mg by mouth as needed for nausea. Active botulinum toxin type A (BOTOX) 100 unit SolR by See Administration Instructions route. Every 12 weeks Active LORazepam (ATIVAN) 0.5 MG tablet TAKE ONE TAB 30 MINS PRIOR TO PROCEDURE AND TAKE 2ND TAB NEEDED 2 Active norethindrone- ethinyl estradiol (MICROGESTIN 07/07) 1-0.02 mg per tabletIndicati ons:Irregular menses Take 1 tablet by mouth daily. 28 tablet 5 2 Active Active Problems Problem Noted Date Diagnosed Date Irregular menses 01/31/2022 Overview (01/31/2022): Scant-moderate bleeding with cramping for up to three weeks each month for the past year. Assessment & Plan (01/31/2022 3:41 PM EDT): We reviewed history of irregular/prolonged bleeding with cramping and possible etiologies including hormonal changes, infection, thyroid/pituitary disorder, uterine fibroids or polyps, endometrial hyperplasia. Will check TSH, prl, CGC, SHG and follow up pending results re: treatment options. Immunizations Immunization Administration Dates Next Due COVID-19 (Pre-04/09) Pfizer Vaccine, mRNA, PF 03/07/2021,06/04/2020 HPV, unspecified formulation 03/14/2007,11/10/19 07,09/07/2006 INFLUENZA, SPLIT VIRUS, TRIV ALENT W/ PRESERVATIVE IM 04/07/2016 Influenza Quadrivalent Prese rvative Free IM 03/24/2021,03/16/2020,04/04/2019,2017 Influenza Quadrivalent w/ Preservative IM 03/30/2017 Influenza, Unspecified Formulation 04/01,03/18/2018,04/16/2016,2014 Td, unspecified formulation 10/16/2005 Tdap 05/02/2012 Family History Medical History Relation Comments Hypertension Mother Migraines Mother Migraines Sister Relation Status Comments Mother Sister Social History Tobacco Use Types Packs/Day Years Used Date Smoking Tobacco: Never Smokeless Tobacco: Never Alcohol Use Standard Drinks/Week Comments Yes 2 (1 standard drink = 0.6 oz pur e alcohol) Education Answer Date Recorded Are you interested in more education? Not on amy e 10/13/2022 Are you concerned about learning? Not on file 10/13/2022 No 10/13/2022 No 10/13/2022 Digital Access Answer Date Recorded No 11/11/2022 No 11/11/2022 Reliable internet access at home? Not on file 11/11/2022 Device with a working camera? Not on file Comments No Sex and Gender Information Value Date Recorded Sex Assigned at Female 03/04/2019 4:23 PM EDT Legal Sex Female 10:29 PM EDT Gender Identity Female 03/04/2019 4:23 PM EDT Sexual Orientation Straight 03/04/2019 4: 23 PM EDT Last Filed Vital Signs Vital Sign Reading Time Taken Comments Blood Pressure 118/78 04/05/2022 3:47 PM EDT Pulse 58 03/04/2019 4:25 PM EDT Temperature 36.6 C (97.9 F) 03/04/2019 4:25 PM EDT Respiratory Rate 18 03/04/2019 4:25 PM EDT Oxygen Saturation 100% 03/04/2019 4:25 PM EDT Inhaled Oxygen Concentration - - Weight 63.5 kg (140 lb) 01/31/2022 2:34 PM EDT Height 170.2 cm (5' 7 ) 01/31/2022 2:34 PM EDT Body Mass Index 21.93 01/31/2022 2:34 PM EDT Plan of Treatment Health Maintenance Due Date Last Done Comments DEPRESSION SCREENING 1993 HEPATITIS C SCREENING 12/22/1999 HIV ONE-TIME SCREENING (18-65 YEARS) 12/22/1999 MAMMOGRAM 2021 Adult Td,Tdap Booster 05/02/2022 05/02/2012, 006 PAP SMEAR 06/24/2023 06/24/2020 INFLUENZA VACCINE (#1) 2025 2, 03/24/2021, 03/16/2020, Additional history exists COVID-19 VACCINE (2024- season) 2025 03/07/2021, 06/25/2020, 06/04/2020 SMOKING STATUS SCREENING (Once After 26 Yrs) Completed 01/31/2022 HEPATITIS A VACCINES Aged Out No long er eligible based on patient's age to complete this topic HIB VACCINES Aged Out No longer eligi ble based on patient's age to complete this topic MENINGOCOCCAL VACCINES (ACWY) Aged Out No longer eligible based on patient's age to complete this topic MENINGOCOCCAL VACCINES (B) Aged Out N o longer eligible based on patient's age to complete this topic PNEUMOCOCCAL VACCINES (0-49 years) Aged Out No longer eligible based on patient's age to complete this topic Medical Devices Not on file Procedures Procedure Name Priority Date/Time Associated Diagnosis Comments PAP TEST Routine 06/24/2020 12:00 AM EST from Last 3 Months or Most Recently Relevant to Health Maintenance Results * Pap Smear (06/24/2020 12:00 AM EST) 06/24/2020 06/25/2020 8:2 1 AM EST Narrative SEE NARRATIVE - 06/29/2020 9:32 [place] [address] Sliver Lapper: Lakeisha Guillen MD WORKFORCE PLANNER Cytology Report FINAL DIAGNOSIS A. PAP SMEAR (SUREPATH) CE: SPECIMEN ADEQUACY: Satisfactory for evaluation; transformation zone present. INTERPRETATION: NEGATIVE FOR INTRAEPITHELIAL LESION OR MALIGNANCY. Electronically Signed Out By: VENTURA Martins(ASCP) The Pap test is a screening test primarily for squamous cancers and precursors and has associated false-negative and false-positive results. New technologies such as liquid-based preparations may decrease but will not eliminate all false-negative results. Regular sampling and follow-up of unexplained clinical signs and symptoms are recommended to minimize false negative results. PROCEDURES/ADDENDA HPV Testing (Requested) Ordered Date: 06/25/2020 A. PAP SMEAR (SUREPATH) CE: Human Papilloma Virus Test Negative for high-risk human papillomavirus types 16, 18, 45 and the Other high risk probe set (Includes 31, 33, 35, 39, 51, 52, 56, 58, 59, 66, 68) by [employer] Onclarity HR-HPV analysis. Clinical correlation is advised. This HPV test was performed at [facility], [address] [place] [address]. This test has been FDA approved for SurePath cervical cytology specimens. The accuracy and precision of this test for all other specimen sources has been verified in the Cytopathology Laboratory of the [facility] and has not been cleared or approved by the U.S. Food and Drug Administration. Clinical correlation is advised. CLINICAL HISTORY Date of Last Menstrual Period: Not Provided Menstrual History: Unknown Other Clinical Conditions: Screening Pap SPECIMEN SOURCE A: PAP SMEAR (SUREPATH) CE Patient Name: IGNACIO ARIAS : 1980 (Age: 39) Sex: F [facility] Date of Collection: 06/24/2020 Date of Reported: 06/28/2020 11:48 Results to: Jamee Wood MD Jamee Wood MD CYTOLOGY ORDERABLES Edited Resul t - Final SEE NARRATIVE from Last 3 Months or Most Recently Relevant to Health Maintenance Insurance [employer] [facility] [employer] [facility] [employer] [facility] [employer] [address] [employer] [facility] [employer] [address] [employer] [facility] [employer] Care Teams Marble Ceiling Installer Relationship Specialty Start Date End Date Nel Caceres NP [address] [place] [address] PCP - General Family Medicine 01/30/22 Nel Caceres NP [address] [place] [address] 03/04/19 Additional Source Comments The information contained in this document represents components of the legal health record. It is not the complete legal health record.[facility]
--- OUTSIDE RECORDS SUMMARY | 2025-03-13 09:45 | XMS_ITS | Encounter Summary ---
Author Organization [facility] Address [facility] [address] [address] Phone Care Team Providers Care Personal Injury Law Specialist Name Role Phone Nel Caceres NP Primary Care Provider [phone] Nel Caceres WET INSPECTOR [employer] Unavailable [phone] Encounter Details Date Type Department Care Team (Late st Contact Info) Description 06/09/2022 Procedure Pass OR Admitting Dept - Virtual Department [address] [place], [place] [id number] Social History Tobacco Use Types Packs/Day Years [...] on filedocumented in this encounter Care Teams Personal Injury Law Specialist Relationship Specialty Start Date End Date Nel Caceres NP [address] [place] [address] PCP - General Family Medicine 01/30/22 Nel Caceres NP [address] [place] [address] 03/04/19 documented as of this encounter Additional Source Comments The information contained in this document represents components of the legal health record. It is not the complete legal health record.[facility]
== END 2025-03-13 09:54 | disposition home or self-care (01) ==
LOC: HO.PMC 09:06
PROVIDERS: Visit Provider Internal Medicine
DX: M54.81 Occipital neuralgia (principal); R51.9 Headache, unspecified
CPT/HCPCS: 64400; 64405; 64450

== ENCOUNTER → 2025-03-13 09:05 | Outpatient (BNVA) | payer OTHER, SELFPAY | PROVIDERS: Visit Provider Internal Medicine | DX: M54.81 Occipital neuralgia (principal); G43.909 Migraine, unspecified, not intractable, without status migrainosus | CPT/HCPCS: 64400; 64405; 64450; J0585; J2795 ==

== ENCOUNTER 2025-03-27 09:23 | Outpatient (AMB) | payer OTHER, SELFPAY ==
[2025-03-27 09:27] VITALS: BP 98/64; PULSE 66; RESP 16; O2SAT 98; BMI 21.9
--- NOTE | 2025-03-27 09:27 | A.OFFVIS_ITS ---
Vital Signs 03/27/25 09:27 Height 5 ft 7 in Weight 140 lb BMI 21.9 BP 98/64 Blood Pressure Location Lt brachial Position Sitting Respiration 16 Pulse 66 Pulse Source Pulse Oximeter Pulse Oximetry (%) 98 Oxygen Delivery Method Room Air Intake Visit Reasons: Botox Utilization Review Coordinator Required: No Timber Packer: Timber Packer Present Accompanied by: Jayce Cardozo Allergies No Known Allergies Allergy (Verified 03/27/25 09:29) Medication List - Last Reconciled 03/27/25 by Vilma Vegas LPN [Aircuity cold therapy system Anexon cold therapy system, part number [id number]. PC [employer] with intelli-merary shoulder pad NS] onabotulinumtoxinA (Botox) 155 units subcut .Q 3 months ondansetron 4 mg PO Q4-6H PRN sumatriptan succinate (Imitrex) 100 mg PO Q2-4H PRN HPI HPI Botox: Details: Patient presents for scheduled procedure. Denies any recent cough, cold, infection, fever or other significant changes in medical history since last office visit. [facility] Medical History Bilateral occipital neuralgia Migraine Surgical History History of endometrial ablation Social History Current occupational status: employed Current occupation: OR nurse Physical Exam Vital Signs: Last Vital Signs Pulse 66 03/27/25 09:27 Resp 16 03/27/25 09:27 BP 98/64 03/27/25 09:27 Pulse Ox 98 03/27/25 09:27 Oxygen Delivery Method Room Air 03/27/25 09:27 BMI result Body Mass Index 21.9 Office Procedures Botulinum toxin Injection Details: Chemodenervation of Scalp and Neck for Chronic Migraine (155 units as per protocol approved by FDA) After obtaining written consent, pre-procedure blood pressure and heart rate were stable and recorded in the nursing record. The patient was placed in the sitting position. Bilaterally, 31 points along business analysis specialist (2 sites), procerus (1 site), frontalis (4 sites), temporalis (8 sites), occipitalis (6 sites), cervical paraspinals (4 sites), and trapezius (6 sites) were identified and prepped with alcohol. Using sterile technique, a 30 gauge 0.5 inch needle (for all sites other than trapezius) and 25 gauge 1.5 inch (for trapezius only) n eedle was introduced into each muscle and 5 units per site was injected. A total of 155 units were used. Aspirations were negative for blood, CSF and air prior to injection at all sites. The needle was removed, skin cleansed and a sterile bandage was applied where needed. The patient tolerated the procedure well and no complications were encountered. Following the procedure the patient's vital signs were stable. The patient was discharged home in good condition with post- procedural instructions. Time Out: Immediately prior to the procedure, the following was verbally confirmed that there is a signed consent form and that the correct patient, planned procedure, site and side are consistent with documentation and that necessary equipment and/or blood products are available prior to the start of the case. Complications: none EBL: <5 cc 94093 - Migraine Procedure code (CPT) selection complete Office Meds onabotulinumtoxinA 200 unit solution for injection Performing Provider: Akbar Osorio MD Performing Location: [facility] Administered by: Akbar Osorio MD on 03/27/25 10:02 Dose Route Admin Location Dispensed Lot Number Expiration Date [facility] Associate Professor Of Art 200 unit IM 155 ea [id number] 05/18/27 Total Dispensed Waste 155 ea 0 % Assessment & Plan Assessment & Plan (1) Migraine: Code(s): G43.909 - Migraine, unspecified, not intractable, without status migrainosus Category: Medical Qualifiers: Migraine type: chronic without aura Status migrainosus presence: with status migrainosus Intractability: intractable Qualified Code(s): G43.711 - Chronic migraine without aura, intractable, with status migrainosus Plan Patient is status post Botox migraine protocol. Patient tolerated procedure well and was discharged home in stable condition with discharge instructions. All questions were answered. Repeat in 3 months. Orders: Orders AMB Botulinum toxin Injection Today G43.909 - Migraine, unspecified, not intractable, without status migrainosus Coding Level of Care Code Procedure Only Diagnoses Intractable chronic migraine without aura and with status migrainosus G43.711 Migraine type: chronic without aura Status migrainosus presence: with status migrainosus Intractability: intractable CPT Codes Botox Injection - Botox 3: 88516 - Migraine ([id number])
--- OUTSIDE RECORDS SUMMARY | 2025-03-27 09:58 | XMS_ITS | Clinical Summary ---
Author Organization [facility] Address [address] [place] [address] Phone Care Team Providers Care [employer] Tutor Name Role Phone Nel Caceres NP Primary Care Provider [phone] Nel Caceres NP Unavailable [phone] Allergies No known active allergies Medications [...] SEE NARRATIVE - 06/29/2020 9:32 [place] [address] Bottomer Operator: Lakeisha Guillen MD PRESS AND BLOW MACHINE TENDER Cytology Report FINAL DIAGNOSIS A. PAP SMEAR [...] 52, 56, 58, 59, 66, 68) by [employer] Onclarity HR-HPV analysis. Clinical correlation is advised. This HPV test was performed at [facility], [address] [place] [address]. This test has been FDA approved for SurePath cervical cytology specimens. The accuracy and precision of this test for all other specimen sources has been verified in the Cytopathology Laboratory of the [facility] and has not been cleared or approved by the U.S. Food and Drug Administration. Clinical correlation is advised. CLINICAL HISTORY Date of Last Menstrual Period: Not Provided Menstrual History: Unknown Other Clinical Conditions: Screening Pap SPECIMEN SOURCE A: PAP SMEAR (SUREPATH) CE Patient Name: IGNACIO ARIAS : 1980 (Age: 39) Sex: F [facility] Date of Collection: 06/24/2020 Date of Reported: 06/28/2020 11:48 Results to: Jamee Wood MD Jamee Wood MD CYTOLOGY ORDERABLES Edited Resul t - Final SEE NARRATIVE from Last 3 Months or Most Recently Relevant to Health Maintenance Insurance [employer] BENEFITS [employer]MINISTRAT[email or web address] [facility] ADMINISTRATORS [email or web address] [facility] ADMINISTRATORS [email or web address] [facility] ADMINISTRATORS [facility] [email or web address] [place] [address] [email or web address] [facility] ADMINISTRATORS [address] [place] [address] [employer] [facility] ADMINISTRATORS Care Teams [employer] Tutor Relationship Specialty Start Date End Date Nel Caceres NP [address] [place] [address] PCP - General Family Medicine 01/30/22 Nel Caceres NP [address] [place] [address] 03/04/19 Additional Source Comments The information contained in this document represents components of the legal health record. It is not the complete legal health record.[facility]
--- OUTSIDE RECORDS SUMMARY | 2025-03-27 09:58 | XMS_ITS | Encounter Summary ---
Author Organization Located [facility] Address [facility]ly [facility] [address] [address] Phone Care Team Providers Care Cloth Washer Name Role Phone Nel Caceres NP Primary Care Provider [phone] Nel Caceres KNOWLEDGE ANALYST Unavailable [phone] Encounter Details Date Type Department Care Team (Late st Contact Info) Description 06/09/2022 Procedure Pass OR Admitting Dept - Virtual Department [address] [place], [place] [id number] Social History Tobacco Use Types Packs/Day Years [...] on filedocumented in this encounter Care Teams Cloth Washer Relationship Specialty Start Date End Date Nel Caceres NP [address] [place] [address] PCP - General Family Medicine 01/30/22 Nel Caceres NP [address] [place] [address] 03/04/19 documented as of this encounter Additional Source Comments The information contained in this document represents components of the legal health record. It is not the complete legal health record.[facility]
== END 2025-03-27 10:01 | disposition home or self-care (01) ==
LOC: HO.PMC 09:23
PROVIDERS: Visit Provider Internal Medicine
DX: G43.909 Migraine, unspecified, not intractable, without status migrainosus (principal); G43.711 Chronic migraine without aura, intractable, with status migrainosus
CPT/HCPCS: 64615

== ENCOUNTER → 2025-03-27 09:23 | Outpatient (BNVA) | payer OTHER, SELFPAY | PROVIDERS: Visit Provider Internal Medicine | DX: G43.711 Chronic migraine without aura, intractable, with status migrainosus (principal) | CPT/HCPCS: 64615; J0585 ==